=== PATIENT | female | born 1985 | race Hispanic/Latino ===

== ENCOUNTER 2017-04-28 05:49 | Emergency (ER) | payer MEDICAID, SELFPAY ==
[2017-04-28 06:12] LABS: #Basophils 0.1 thou/uL (0.0-0.2); #Eosinphils 0.1 thou/uL (0.0-0.7); #Monocytes 0.4 thou/uL (0.11-0.59); #Neutrophils 3.4 thou/uL (1.40-6.50); %Basophils 1.1 % (0.0-1.0); %Eosinophils 1.3 % (0.0-10.0); %Lymphocytes 34.2 % (21.0-51.0); %Monocytes 6.6 % (0.0-10.0); Hematocrit 41.1 % (36.0-47.0); Mean Platelet Volume 7.2 fL (7.4-10.4); Red Blood Cell (RBC) Count 4.92 mill/uL (4.20-5.40); White Blood Cell (WBC) Count 5.9 thou/uL (4.8-10.8)
[2017-04-28 06:31] LABS: ALT (SGPT) 37 U/L (8-55); AST (SGOT) 26 U/L (5-34); Alkaline Phosphatase 112 U/L (40-150); Anion Gap 10 mmol/L (10-20); BUN (Urea Nitrogen) 11 mg/dL (7.0-18.7); Bilirubin, Total 0.4 mg/dL (0.2-1.2); Calc. Creatinine Clearance 0 mL/min (70-130); Carbon Dioxide 25 mmol/L (22-29); Chloride 101 mmol/L (98-107); Estimated GFR-MDRD Greater than 90; Globulin 3.2 g/dL (2.4-3.5); Protein, Total 7.1 g/dL (6.0-8.3)
[2017-04-28 06:44] LABS: Bilirubin Negative (Negative); Blood, Urine Negative (Negative); Glucose, Urine (Dipstick) >=1000 mg/dL (Negative); Ketone, Urine 15 mg/dL (Negative); Nitrite Negative (Negative); Protein, Urine (Dipstick) Negative (Neg-Trace); Urobilinogen 0.2 mg/dL (0.2-1.0)
[2017-04-28 06:47] LABS: Bacteria/HPF Rare-Few HPF (None Seen); Hyaline Casts/LPF 4-6 HYALINE CAST LPF (0-3 Hyaline); RBC/HPF 0-3 HPF (0-3)
[2017-04-28] MEDS ORDERED: Ondansetron HCl/PF 4 MG/2 ML Vial ONE (08:16)
[2017-04-28] MEDS ORDERED: Morphine 4 MG/ML VIAL ONE (08:16)
--- NOTE | 2017-04-28 11:36 | ULT ---
PELVIC ULTRASOUND: Date: 04/28/17 HISTORY: Lower abdominal pain. COMPARISON: 12/19/14. TECHNIQUE: Transabdominal and endovaginal imaging of the pelvis is performed. Ovaries are interrogated with Gandara scale, color flow, and Doppler imaging with spectral waveform analysis. FINDINGS: Uterus is identified, without myometrial masses. Uterus measures 4.6 x 3.5 x 8.2 cm. Homogeneous endo metrium with a diameter of 0.4 cm. Right ovary is not appreciated due to previous right oophorectomy. Left ovary has a normal echotexture with follicles. Left ovary measures 1.8 x 1.8 x 3.6 cm. There is no free fluid. Ovarian Doppler: Vascular flow to left ovary. IMPRESSION: Unremarkable pelvic ultrasound. POS: [facility]
== END 2017-04-28 10:27 | disposition home or self-care (01) ==
LOC: ERS 05:49
DX: N76.0 Acute vaginitis (principal); R10.31 Right lower quadrant pain; R10.32 Left lower quadrant pain; E11.9 Type 2 diabetes mellitus without complications
CPT/HCPCS: 36415; 76856; 80053; 81003; 81015; 81025; 83690; 85025; 87086; 87480; 87491; 87510; 87591; 87660; 96361; 96374; 96375; J2270; J2405

== ENCOUNTER 2017-08-14 10:13 | Inpatient (IN) | payer MEDICAID, OTHER, SELFPAY ==
[2017-08-14] MEDS ORDERED: Gadobenate Dimeglumine 529 MG/1 ML (20ML VIAL) ONE (12:56)
[2017-08-14 16:47] LABS: #Basophils 0.1 thou/uL (0.0-0.2); #Eosinphils 0.1 thou/uL (0.0-0.7); #Lymphocytes 2.2 thou/uL (1.20-3.40); #Monocytes 0.4 thou/uL (0.11-0.59); %Basophils 1.2 % (0.0-1.0); %Eosinophils 1.3 % (0.0-10.0); %Lymphocytes 38.3 % (21.0-51.0); %Monocytes 6.8 % (0.0-10.0); %Neutrophils 52.4 % (42.0-75.0); Hemoglobin 12.6 g/dL (12.0-16.0); Mean Corpuscular HGB CONC 32.9 g/dL (32.0-36.0); Mean Corpuscular Hemoglobin 27.9 pg (27.0-31.0); Mean Corpuscular Volume 84.9 fl (81.0-99.0); Mean Platelet Volume 7.1 fL (7.4-10.4); Platelet Count 309 thou/uL (130-400); RBC Distribution Width 12.8 % (11.5-14.5); White Blood Cell (WBC) Count 5.6 thou/uL (4.8-10.8)
[2017-08-14 16:54] LABS: Hemoglobin A1c 8.9 % (4.0-6.0)
[2017-08-14 17:10] LABS: ALT (SGPT) 29 U/L (8-55); AST (SGOT) 25 U/L (5-34); Albumin 4.2 g/dL (3.5-5.0); Alkaline Phosphatase 68 U/L (40-150); Anion Gap 12 mmol/L (10-20); BUN (Urea Nitrogen) 14 mg/dL (7.0-18.7); Bilirubin, Total 0.3 mg/dL (0.2-1.2); Calc. Creatinine Clearance 0 mL/min (70-130); Calcium 9.3 mg/dL (7.8-10.44); Carbon Dioxide 24 mmol/L (22-29); Chloride 106 mmol/L (98-107); Estimated GFR-MDRD Greater than 90; Globulin 2.9 g/dL (2.4-3.5); Glucose 136 mg/dL (70-105); Potassium 3.4 mmol/L (3.5-5.1); Protein, Total 7.1 g/dL (6.0-8.3); Sodium 139 mmol/L (136-145)
--- NOTE | 2017-08-14 20:38 | MRI ---
MRI OF THE LUMBAR SPINE WITH AND WITHOUT CONTRAST 08/14/17 COMPARISON: None. HISTORY: Bilateral lower extremity numbness and tingling in her feet. Patient has worsening of symptoms and no w has difficulty ambulating. Patient is a brittle diabetic and is initially placed on Lyrica. Patient has poor control of her diabetes. TECHNIQUE: Multiplanar and multisequence MRI images were obtained of the lumbar spine without and with IV contra st. FINDINGS: There is a predominantly high T2 signal lesion in the posterior aspect of the central canal extending from T10 to L1-2. This is approximately 10.5 cm in length. Within this predominantly high T2 lesion, there are multiple septations which appear to demonstrate enhancement. There is a mass-like region m easuring 8 mm in greatest dimension at the T11-12 level which could represent a mass or a confluence of the septations in this location. This mass completely effaces the cord which is flattened and is a long the anterior aspect of the central canal. No marrow signal abnormality is present. There is mild disc desiccation of L5-S1. The other discs are well hydrated. No significant disc herniation is seen. No abnormal marrow signal is present. No prevertebral or paraspinal soft tissue abnormality is seen. IMPRESSION: There is a mass within the central canal compressing the spinal cord anteriorly and is likely a cause for the patient's symptoms. Differential diagnosis would include an arachnoid cyst that is complicat ed with multiple septations. This could also represent ventral herniation of the spinal cord through the dura. Lastly, this could represent a epidural/subdural abscess although this is felt to be less l ikely. However, this differential is a consideration given the patient's poorly controlled diabetes. This exam was reviewed with Dr. Isaac who agrees with the findings and impression. Dr. Sheets notifi ed of the findings at 7:58 p.m. on 08/14/17. Code CR POS: [facility]
[2017-08-14 21:12] LABS: Bilirubin Negative (Negative); Blood, Urine Negative (Negative); Clarity CLEAR (Clear); Glucose, Urine (Dipstick) Negative (Negative); Leukocyte Moderate (Negative); Nitrite Negative (Negative); Protein, Urine (Dipstick) Negative (Neg-Trace); Specific Gravity, Urine 1.022 (1.002-1.036); Urobilinogen 0.2 mg/dL (0.2-1.0)
[2017-08-14 21:16] LABS: Bacteria/HPF Rare-Few HPF (None Seen); Hyaline Casts/LPF 7-10 HYALINE CAST LPF (0-3 Hyaline); Pathc Cast-AUWi Flag 0.43 (0-2.49); RBC/HPF 0-3 HPF (0-3); Squamous Epithelial 0-3 HPF (0-3); WBC/HPF 21-50 HPF (0-3); Yeast-AUWi Flag 22.2 (0-25.0)
[2017-08-14] MEDS ORDERED: HYDROcodone/Acetaminophen 5/325 mg Tablet ONE (21:52)
[2017-08-14] MEDS ORDERED: Ondansetron ODT 4 MG TAB SL PRN (23:22)
[2017-08-14] MEDS ORDERED: Ondansetron HCl/PF 4 MG/2 ML Vial IVP PRN ×2 (23:22→23:27)
[2017-08-14] MEDS ORDERED: Acetaminophen 325 MG TAB PO PRN ×2 (23:22→23:27)
[2017-08-14] MEDS ORDERED: Calcium Carbonate 500 MG ChewTAB PO PRN (23:27)
[2017-08-14] MEDS ORDERED: Mag-Al 1200 mg/1200 mg/30 ML UDCUP PO PRN (23:27)
[2017-08-14] MEDS ORDERED: Fleet Enema 133 ML BOT PR PRN (23:27)
[2017-08-14 23:36] VITALS: BMI 33.2
[2017-08-14] MEDS: Sodium Chloride 0.9% 1,000 ML IV SCH (23:50)
--- NOTE | 2017-08-15 02:54 | HP ---
Ajith Bright PA-C, dictating for Sami Friedman MD This is a 50-minute initial patient evaluation in which greater than 50% of the exam was spent in cou nseling and coordinating the patient's care. Remainder of the exam was spent in review of patient's medical records and appropriate imaging studies. CHIEF COMPLAINT: Bilateral lower leg numbness and tingling with left leg weakness and pain. HISTORY OF PRESENT ILLNESS: Ms. Iniguez is a pleasant 32-year-old female who presents to [place] emergency room for the above complaints. Apparently, the patient has had a 3-week history of bilater al leg numbness and tingling in nondermatomal distribution with left leg pain in the left anterior th igh and posterior calf with progressive worsening of weakness in the left lower extremity. The patie nt states over the past 2 days, she has had increased falls and balance issues due to left leg weakne ss and has required to hold on to the wall for furniture when walking throughout her house and she macias s fallen several times, but has not used her cane or a walker, she does not have one. She is a type 2 diabetic. Her current A1c is 8.9 in the ER [facility]. She has been using Lyrica over the past 3 wee ks that she states has not helped improve her numbness and tingling. Again, she has also noticed bal ance difficulties due to her left leg weakness and pain. She has had issues of urinary retention whe re she has not had the urge to urinate and when she does finally go, her stream of urination is sever al minutes long. This has been going on for the past 2 or more week and she has also noticed some co nstipation over that time as well. She is not on any blood thinners. She has not had any recent tra vishal to [place]. She does not have a known history of IV drug use. Review of patient's lumbar spine M RI with and without contrast shows an enhancing lesion starting at the T10 level down to the L2 level that causing significant compression of the spinal cord and spinal canal. It is unclear if this is a cyst versus some type of tumor. The patient does have occasional headache into bilateral frontal r egion and some intermittent posterior neck pain, although she states her neck pain has not changed ov er the past 3 weeks and she did experience a headache on Saturday, which she states is somewhat new to her although she has a history of migraine headaches with . PHYSICAL EXAMINATION: On physical examination, the patient is awake, alert, and appropriate. Her GC S currently is 15. She has full strength in the bilateral upper extremities with some mild give way weakness in the right lower extremity with mild to moderate give way weakness throughout the entire l eft lower extremity. She has difficulty with dorsiflexion and plantar flexion bilaterally. She has intact sensation to light touch throughout though does state the left lower extremity feels as though she has hyperesthesia to touch. She has no worrisome myelopathic features on exam including no incr eased tone and Zapata's is negative bilaterally. IMPRESSION AND DIAGNOSES: 1. Low back with bilateral lower extremity numbness and tingling, left greater than right leg weakne ss. 2. Enhancing lesion noted on lumbar spine MRI from T10-L2. PLAN: I have discussed the patient's case and imaging with Dr. Friedman. At this time, I have ordered full cranial spinal imaging including MRI with and without contrast of the brain, cervical and thora cic spine. We will admit the patient to the surgical floor on bed rest with bathroom privileges. A Herrera will be placed. She may eat until midnight. We will consult Medicine regarding the patient's diabetes and possible urinary tract infection. We will follow up on her studies once they have been completed and determine the next appropriate course in treatment, but at this time the patient does n ot require emergent neurosurgical intervention. Again, we will follow up on her studies. Please aubree l with any questions or changes in patient's neurologic status.
[2017-08-15] MEDS: Morphine 4 MG/ML VIAL SLOW IVP PRN (03:16)
[2017-08-15] MEDS: HYDROcodone/Acetaminophen 5/325 mg Tablet PO PRN ×3 (05:49→18:34)
[2017-08-15 05:57] LABS: #Basophils 0.1 thou/uL (0.0-0.2); #Eosinphils 0.1 thou/uL (0.0-0.7); #Lymphocytes 2.7 thou/uL (1.20-3.40); #Monocytes 0.5 thou/uL (0.11-0.59); #Neutrophils 2.3 thou/uL (1.40-6.50); %Basophils 1.7 % (0.0-1.0); %Eosinophils 2.1 % (0.0-10.0); %Lymphocytes 47.3 % (21.0-51.0); %Monocytes 8.5 % (0.0-10.0); %Neutrophils 40.4 % (42.0-75.0); Hemoglobin 11.9 g/dL (12.0-16.0); Mean Corpuscular Hemoglobin 28.1 pg (27.0-31.0); Mean Corpuscular Volume 85.2 fl (81.0-99.0); Mean Platelet Volume 7.3 fL (7.4-10.4); Platelet Count 292 thou/uL (130-400); RBC Distribution Width 12.9 % (11.5-14.5); Red Blood Cell (RBC) Count 4.24 mill/uL (4.20-5.40); White Blood Cell (WBC) Count 5.7 thou/uL (4.8-10.8)
[2017-08-15 06:17] LABS: Anion Gap 11 mmol/L (10-20); BUN (Urea Nitrogen) 16 mg/dL (7.0-18.7); Calc. Creatinine Clearance 135 mL/min (70-130); Carbon Dioxide 25 mmol/L (22-29); Chloride 107 mmol/L (98-107); Estimated GFR-MDRD Greater than 90; Glucose 106 mg/dL (70-105); Potassium 3.7 mmol/L (3.5-5.1); Sodium 139 mmol/L (136-145)
[2017-08-15] MEDS ORDERED: Dextrose 5% in Water 1,000 ML IV PRN (07:51)
[2017-08-15] MEDS ORDERED: Loratadine 10 MG TAB PO PRN (07:51)
[2017-08-15] MEDS ORDERED: Artificial Tears 18 DROP/0.9 ML EA EYE PRN (07:51)
[2017-08-15] MEDS ORDERED: Eucerin (Mineral Oil/Petrolatum,White) 30 gm Jar TOP PRN (07:51)
[2017-08-15] MEDS ORDERED: Ondansetron ODT 4 MG TAB PO PRN (07:51)
[2017-08-15] MEDS ORDERED: Loperamide HCl 2 MG CAP PO PRN (07:51)
[2017-08-15] MEDS ORDERED: Diabetic Tussin 200 MG/10 ML UDCUP PO PRN (07:51)
[2017-08-15] MEDS ORDERED: Dextrose 50% Abboject 50 ML SYRINGE SLOW IVP PRN (07:51)
[2017-08-15] MEDS ORDERED: Zolpidem Tartrate 5 MG TAB PO PRN (07:51)
[2017-08-15] MEDS ORDERED: hydrALAZINE 20 MG/ML VIAL SLOW IVP PRN (07:51)
[2017-08-15] MEDS ORDERED: Sodium Chloride 0.65% Nasal 44 ML BOT EA NARE PRN (07:51)
[2017-08-15] MEDS ORDERED: Chloraseptic Spray 180 ml Bottle PO PRN (07:51)
[2017-08-15] MEDS: metFORMIN 500 MG TAB PO SCH ×2 (08:26→16:54)
[2017-08-15] MEDS: Docusate 100 MG CAP PO SCH ×2 (08:26→20:32)
--- NOTE | 2017-08-15 10:27 | PDOC.PN ---
- Subjective Encounter Start Date: 08/15/17 Encounter Start Time: 08:10 -: old records requested/rev consult for medical management - Objective Resuscitation Status: Resuscitation Status FULL:Full Resuscitation MAR Reviewed: Yes Vital Signs & Weight: Vital Signs (12 hours) Temp Pulse Resp BP Pulse Ox 08/15/17 07:25 98.3 F 65 16 105/74 97 08/15/17 03:30 98.1 F 66 16 119/76 96 08/14/17 23:10 98.2 F 57 L 18 132/79 99 Weight Weight 153 lb 9 oz I&O: 08/14/17 08/15/17 08/16/17 06:59 06:59 06:59 Intake Total 450 Output Total 250 Balance 200 Result Diagrams: 08/15/17 04:53 08/15/17 04:53 Additional Labs: Accuchecks 08/15/17 05:44 POC Glucose 109 Radiology Reviewed by me: Yes (MRI) Phys Exam - Physical Examination Constitutional: NAD HEENT: PERRLA, moist MMs, sclera anicteric Neck: no JVD, supple Respiratory: no wheezing, no rales, no rhonchi Cardiovascular: RRR, no significant murmur, no rub Gastrointestinal: soft, non-tender, no distention, positive bowel sounds Musculoskeletal: no edema, pulses present parasthesia and weakness of both lower extrimity, more on left side Lymphatic: no nodes Psychiatric: normal affect, A&O x 3 Skin: no rash, normal turgor Dx/Plan (1) Paraplegia, unspecified Code(s): G82.20 - PARAPLEGIA, UNSPECIFIED Status: Acute (2) Bilateral leg paresthesia Code(s): R20.2 - PARESTHESIA OF SKIN Status: Acute (3) Mass of spinal cord Code(s): G95.9 - DISEASE OF SPINAL CORD, UNSPECIFIED Status: Acute (4) Diabetes type 2, controlled Code(s): E11.9 - TYPE 2 DIABETES MELLITUS WITHOUT COMPLICATIONS Status: Chronic (5) Obesity (BMI 30.0-34.9) Code(s): E66.9 - OBESITY, UNSPECIFIED Status: Chronic (6) UTI (urinary tract infection) Status: Suspected (7) Hypokalemia Code(s): E87.6 - HYPOKALEMIA Status: Resolved - Plan cont current plan of care, PT/OT * send urine culture and start antibiotics if afebrile or positive culture * pt is planned for surgery for spinal cord tumur * start hyperglycemia protocol treatment * medication reviewed as below * symptomatic treatment * code status- full code * home medication reconciled. History of Present Illnes - History of Present Illness Reason for Visit: admitted for paraplegia History of Present Illness: has parasthesia and weakness of both lower limb more on left side has urgency of urine, required buenrostro no fever no trauma - Past Medical History Musculoskeletal: Chronic low back pain Endocrine: Diabetes - Past Surgical History Past Surgical History: Other (ovarian cyst removal), Tubal Ligation - Past Family History Family History: None - Past Social History Smoke: No Alcohol: None Drugs: None Lives: With Family Domestic Violence: Negative Review of Systems - Review of Systems Constitutional: negative: fever, chills, sweats, weakness, malaise, other Eyes: negative: Pain, Vision Change, Conjunctivae Inflammation, Eyelid Inflammation, Redness, Other ENT: negative: Ear Pain, Ear Discharge, Nose Pain, Nose Discharge, Nose Congestion, Mouth Pain, Mouth Swelling, Throat Pain, Throat Swelling, Other Respiratory: negative: Cough, Dry, Shortness of Breath, Hemoptysis, SOB with Excertion, Pleuritic Pain, Sputum, Wheezing Cardiovascular: negative: chest pain, palpitations, orthopnea, paroxysmal nocturnal dyspnea, edema, light headedness, other Gastrointestinal: negative: Nausea, Vomiting, Abdominal Pain, Diarrhea, Constipation, Melena, Hematochezia, Other Genitourinary: Frequency. negative: Dysuria, Incontinence, Hematuria, Retention , Other Musculoskeletal: negative: Neck Pain, Shoulder Pain, Arm Pain, Back Pain, Hand Pain, Leg Pain, Foot Pain, Other Skin: negative: Rash, Lesions, Chandler, Bruising, Other Neurological: Weakness, Numbness. negative: Incoordination, Change in Speech, Confusion, Seizures, Other - Medications/Allergies Allergies/Adverse Reactions: Allergies Allergy/AdvReac Type Severity Reaction Status Date / Time No Known Drug Allergies Allergy Verified 08/14/17 23:21 Medications: Current Medications Acetaminophen (Tylenol) 650 mg PO Q4H PRN PRN Reason: Headache/Fever or Pain Hydrocodone Bitart/Acetaminophen ([place] 5/325) 1 tab PO Q4H PRN PRN Reason: Moderate Pain (4-6) Last Admin: 03/29/18 05:49 Dose: 1 tab Al Hydroxide/Mg Hydroxide (Maalox) 30 ml PO Q6H PRN PRN Reason: Heartburn or Indigestion Artificial Tears (Tears Naturale) 0 drop EA EYE PRN PRN PRN Reason: Dry Eyes Calcium Carbonate (Tums) 1,000 mg PO Q4H PRN PRN Reason: Heartburn or Indigestion Dextrose/Water (Dextrose 50%) 25 gm SLOW IVP PRN PRN PRN Reason: Hypoglycemia Docusate Sodium (Colace) 100 mg PO BID [facility] Last Admin: 08/15/17 08:26 Dose: 100 mg Glucagon (Glucagon) 1 mg IM PRN PRN PRN Reason: Hypoglycemia Guaifenesin (Robitussin Sf) 200 mg PO Q4H PRN PRN Reason: Cough Hydralazine HCl (Apresoline) 10 mg SLOW IVP Q4H PRN PRN Reason: Systolic BP > 180 Sodium Chloride (Normal Saline 0.9%) 1,000 mls @ 75 mls/hr IV .[id number] [facility] Last Admin: 08/14/17 23:50 Dose: 1,000 mls Dextrose/Water (D5w) 1,000 mls @ 0 mls/hr IV .Q0M PRN; As Directed PRN Reason: Hypoglycemia Insulin Human Lispro (Humalog) 0 units SC .MODERATE SLIDING SC PRN PRN Reason: Moderate Correctional Scale Insulin Human Lispro (Humalog) 0 units SC .BEDTIME SLIDING SC PRN PRN Reason: Bedtime Correctional Scale Loperamide HCl (Imodium) 2 mg PO PRN PRN PRN Reason: Diarrhea/Loose Stools Loratadine (Claritin) 10 mg PO DAILYPRN PRN PRN Reason: Sinus Symptoms [facility]) [facility] Last Admin: 08/15/17 08:26 Dose: 500 mg Mineral Oil/White Petrolatum (Eucerin Cream) 0 gm TOP BIDPRN PRN PRN Reason: Dry Skin Morphine Sulfate (Morphine) 2 mg SLOW IVP Q4H PRN PRN Reason: Severe Pain (7-10) Last Admin: 08/15/17 03:16 Dose: 2 mg Ondansetron HCl (Zofran Odt) 4 mg PO Q6H PRN PRN Reason: Nausea/Vomiting Ondansetron HCl (Zofran) 4 mg IVP Q6H PRN PRN Reason: Nausea/Vomiting Phenol (Chloraseptic [place] 180 Ml Bot) 0 ml PO PRN PRN PRN Reason: Sore Throat Sodium Biphosphate/Sodium Phosphate (Fleet Enema) 133 ml [place] ONE PRN PRN Reason: Constipation Stop: 09/13/17 23:28 Sodium Chloride ([place] Nasal [place] 0.65%) 0 ml EA NARE QIDPRN PRN PRN Reason: Nasal Congestion Zolpidem Tartrate (Ambien) 5 mg PO HSPRN PRN PRN Reason: Insomnia
--- NOTE | 2017-08-15 12:16 | MRI ---
BRAIN MRI WITH AND WITHOUT CONTRAST: Date: 08/15/17 CLINICAL HISTORY: Spinal canal lesion. FINDINGS: The ventricular system is normal in size. Midline structures maintain appropriate alignment. There is no restricted diffusion or ventriculomegaly. No intracranial hemorrhagic susceptibility. There is no pathologic intra-axial enhancing mass. Imaged skull base flow-voids are patent. No significant abnor malities of the brain parenchyma are seen. IMPRESSION: Normal pre and postcontrast brain MRI. POS: [facility]
--- NOTE | 2017-08-15 12:26 | MRI ---
MRI CERVICAL SPINE WITH AND WITHOUT CONTRAST: HISTORY: Spinal canal lesion. FINDINGS: The cervical spinal cord maintains appropriate caliber, contour, and signal intensity. There is no p athologic intramedullary enhancement of the cervical spinal cord. The imaged posterior cranial fossa contents are maintained. There is no significant abnormality of the cervical spine vertebrae. Disk space heights are preserved. Minimal disk bulges are present without significant cord deformity. IMPRESSION: No pathologic intramedullary enhancing lesion of the cervical spinal cord. POS: [facility]
--- NOTE | 2017-08-15 12:47 | MRI ---
THORACIC SPINAL MRI WITH AND WITHOUT CONTRAST: CLINICAL HISTORY: Spinal canal lesion. CORRELATION: Reference is made to a preceding MRI of the lumbar spine from the previous date. FINDINGS: There is pathologic enhancement of the vertebral canal, predominantly cystic in morphology, with enha ncing internal nodularity at its cephalad and posterior aspect, as well as relatively thick internal enhancing septae. The abnormality extends into the lumbar vertebral canal, below the field of view. The finding does represent the appearance of an extramedullary intradural lesion with prominent cord compression and anterior displacement of the compressed distal spinal cord. Incidental note of patchy opacities at each posterior lung zone. No acute marrow edema. No compression deformity or significant malalignment of the thoracic spine. No obvious paraspinous soft tissue abnormality. IMPRESSION: Partially imaged cystic and solid enhancing mass of the vertebral canal, favoring an intradural, extr amedullary location. There is marked compression and anterior displacement of the distal spinal cord as a result. Primary considerations include a cystic neoplasm, particularly a cystic variant of mariela rogenic tumor. Other forms for cystic neoplasm are not excluded. Alternatively, an arachnoid cyst, or infectious/inflammatory cyst with internal complexity are considerations. The finding does result in prominent cord compromise as well as anterior displacement of the cord within the vertebral canal producing a severe degree of cord compression, and therefore surgical removal should be clinically c onsidered. POS: [facility]
[2017-08-15] MEDS: Sodium Chloride 0.9% 1,000 ML IV SCH ×2 (19:09→20:32)
[2017-08-15] MEDS: Ondansetron HCl/PF 4 MG/2 ML Vial IVP PRN (23:30)
[2017-08-16] MEDS ORDERED: Famotidine/PF 20 mg/2ml Vial ONE (06:40)
[2017-08-16] MEDS ORDERED: Ondansetron HCl/PF 4 MG/2 ML Vial ONE ×3 (06:40→14:32)
[2017-08-16] MEDS ORDERED: Thrombin 5000 UNITS/5 ML VIAL ONE ×2 (07:05→14:32)
[2017-08-16] MEDS ORDERED: Sodium Chloride 0.9% 10 ML ONE (07:05)
[2017-08-16] MEDS ORDERED: Bacitracin Zinc Ointment 30 gm TUBE ONE (07:05)
[2017-08-16] MEDS ORDERED: Phenylephrine HCL 10 MG/ML VIAL ONE (07:17)
[2017-08-16] MEDS ORDERED: Albumin 5% 0 ML ONE (07:17)
[2017-08-16] MEDS ORDERED: Midazolam HCl 2 mg/2 ml Vial ONE (07:34)
[2017-08-16] MEDS ORDERED: Metoclopramide HCl 10 MG/2 ML VIAL ONE ×2 (07:35→14:32)
[2017-08-16] MEDS ORDERED: Fentanyl 250 MCG/5 ML VIAL ONE (07:37)
[2017-08-16] MEDS ORDERED: Promethazine HCl 25 MG/ML VIAL ONE (07:38)
[2017-08-16] MEDS ORDERED: CEFAZOLIN/Water 2 GM/20 ML SYRINGE ONE (07:40)
--- NOTE | 2017-08-16 09:53 | PRG ---
DATE OF SERVICE: 08/15/2017 This is a 50-minute initial hospital visit note in which 50 minutes were spent in review of the imagi ng record, evaluation and examination of patient, and formulation of a plan. Greater than 50% of the time was spent in counseling. CHIEF COMPLAINT: Progressive paraplegia over the last 2 weeks, worsening over this week with spinal canal mass. HISTORY OF PRESENT ILLNESS: I reviewed the notes of my colleague, Ajith Bright PA-C, and agree wi th its content. Mr. Iniguez is a 32-year-old mother of 3 over the last couple of weeks she started t o have paresthesias in her legs, progressive motor weakness or motor deficit to where she is essentia lly unable to walk at this time over the last few days. Review of her MRI of the thoracolumbar spine demonstrates a rim enhancing lesion that is cystic compr essing the spinal cord. 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 There is no signal abnormality in the cord indicating edema and the cord is essentially flattened by the dorsa l cyst. I should note that there is some enhancement that is more now nodular in the center. The on set has been rapid. On exam, she is alert, appropriate. She is moderately weak throughout multiple myotomes in the right lower extremity and completely plegic in the left lower extremity. She has a T10 sensory level. Rochelle bran has had problems with bowel and bladder. IMPRESSION AND PLAN: I have recommended surgery in a more urgent fashion. This will be a T10-L2 hess inectomy and expansion beyond that, should it be necessary with exploration and resection. Informed consent was discussed in detail. The patient understands the main risk is temporary and permanent ne urological deficit and the need for further surgery and also wound healing issues such as infection, CSF leak and dehiscence. They will plan to proceed with surgery tomorrow, pursue full cranial spinal imaging thoracolumbar tumor spinal cord compression.
[2017-08-16] MEDS ORDERED: Fentanyl 100 MCG/2 ML VIAL ONE ×4 (10:37→17:24)
[2017-08-16] MEDS: Docusate 100 MG CAP PO SCH ×2 (11:59→21:47)
[2017-08-16] MEDS: metFORMIN 500 MG TAB PO SCH ×3 (11:59→18:31)
--- NOTE | 2017-08-16 12:23 | PDOC.PN ---
- Subjective Encounter Start Date: 08/16/17 Encounter Start Time: 06:45 Patient seen and examined. No new complaints. No overnight events - Objective Resuscitation Status: Resuscitation Status FULL:Full Resuscitation MAR Reviewed: Yes Vital Signs & Weight: Vital Signs (12 hours) Temp Pulse Resp BP Pulse Ox 08/16/17 04:38 98.2 F 74 16 118/77 94 L Weight Weight 153 lb 9 oz I&O: 08/15/17 08/16/17 08/17/17 06:59 06:59 06:59 Intake Total 450 1700 Output Total 250 2150 Balance 200 -450 Result Diagrams: 08/15/17 04:53 08/15/17 04:53 Additional Labs: Accuchecks 08/16/17 08/15/17 08/15/17 05:23 19:41 16:00 POC Glucose 162 H 128 H 171 H Radiology Reviewed by me: Yes (MRI cervical spine and thorecic spine) Phys Exam - Physical Examination Constitutional: NAD HEENT: PERRLA, moist MMs, sclera anicteric Neck: no JVD, supple Respiratory: no wheezing, no rales, no rhonchi Cardiovascular: RRR, no significant murmur, no rub Gastrointestinal: soft, non-tender, no distention, positive bowel sounds Musculoskeletal: no edema, pulses present paraplegia, weakness more on left side Lymphatic: no nodes Psychiatric: normal affect, A&O x 3 Skin: no rash, normal turgor Dx/Plan (1) Paraplegia, unspecified Code(s): G82.20 - PARAPLEGIA, UNSPECIFIED Status: Acute (2) Bilateral leg paresthesia Code(s): R20.2 - PARESTHESIA OF SKIN Status: Acute (3) Mass of spinal cord Code(s): G95.9 - DISEASE OF SPINAL CORD, UNSPECIFIED Status: Acute (4) Diabetes type 2, controlled Code(s): E11.9 - TYPE 2 DIABETES MELLITUS WITHOUT COMPLICATIONS Status: Chronic (5) Obesity (BMI 30.0-34.9) Code(s): E66.9 - OBESITY, UNSPECIFIED Status: Chronic (6) UTI (urinary tract infection) Status: Suspected (7) Hypokalemia Code(s): E87.6 - HYPOKALEMIA Status: Resolved - Plan cont current plan of care * blood sugar are controlled * so far urine cultunre negative * medication reviewed as below * symptomatic treatment * today plan for surgery by neurosurgeon team. Review of Systems - Review of Systems Constitutional: negative: fever, chills, sweats, weakness, malaise, other Eyes: negative: Pain, Vision Change, Conjunctivae Inflammation, Eyelid Inflammation, Redness, Other Respiratory: negative: Cough, Dry, Shortness of Breath, Hemoptysis, SOB with Excertion, Pleuritic Pain, Sputum, Wheezing Cardiovascular: negative: chest pain, palpitations, orthopnea, paroxysmal nocturnal dyspnea, edema, light headedness, other Gastrointestinal: negative: Nausea, Vomiting, Abdominal Pain, Diarrhea, Constipation, Melena, Hematochezia, Other Genitourinary: negative: Dysuria, Frequency, Incontinence, Hematuria, Retention , Other Musculoskeletal: Back Pain. negative: Neck Pain, Shoulder Pain, Arm Pain, Hand Pain, Leg Pain, Foot Pain, Other Skin: negative: Rash, Lesions, Chandler, Bruising, Other Neurological: Weakness, Numbness - Medications/Allergies Allergies/Adverse Reactions: Allergies Allergy/AdvReac Type Severity Reaction Status Date / Time No Known Drug Allergies Allergy Verified 08/14/17 23:21 Medications: Current Medications Acetaminophen (Tylenol) 650 mg PO Q4H PRN PRN Reason: Headache/Fever or Pain Hydrocodone Bitart/Acetaminophen ([place] 5/325) 1 tab PO Q4H PRN PRN Reason: Moderate Pain (4-6) Last Admin: 08/15/17 18:34 Dose: 1 tab Al Hydroxide/Mg Hydroxide (Maalox) 30 ml PO Q6H PRN PRN Reason: Heartburn or Indigestion Artificial Tears (Tears Naturale) 0 drop EA EYE PRN PRN PRN Reason: Dry Eyes Calcium Carbonate (Tums) 1,000 mg PO Q4H PRN PRN Reason: Heartburn or Indigestion Dextrose/Water (Dextrose 50%) 25 gm SLOW IVP PRN PRN PRN Reason: Hypoglycemia Docusate Sodium (Colace) 100 mg PO BID [facility] Last Admin: 08/16/17 11:59 Dose: Not Given Glucagon (Glucagon) 1 mg IM PRN PRN PRN Reason: Hypoglycemia Guaifenesin (Robitussin Sf) 200 mg PO Q4H PRN PRN Reason: Cough Hydralazine HCl (Apresoline) 10 mg SLOW IVP Q4H PRN PRN Reason: Systolic BP > 180 Sodium Chloride (Normal Saline 0.9%) 1,000 mls @ 75 mls/hr IV .[id number] [facility] Last Admin: 08/15/17 20:32 Dose: 1,000 mls Dextrose/Water (D5w) 1,000 mls @ 0 mls/hr IV .Q0M PRN; As Directed PRN Reason: Hypoglycemia Insulin Human Lispro (Humalog) 0 units SC .MODERATE SLIDING SC PRN PRN Reason: Moderate Correctional Scale Insulin Human Lispro (Humalog) 0 units SC .BEDTIME SLIDING SC PRN PRN Reason: Bedtime Correctional Scale Loperamide HCl (Imodium) 2 mg PO PRN PRN PRN Reason: Diarrhea/Loose Stools Loratadine (Claritin) 10 mg PO DAILYPRN PRN PRN Reason: Sinus Symptoms Metformin HCl (Glucophage) 500 mg PO BID-[facility] Last Admin: 08/16/17 11:59 Dose: Not Given Mineral Oil/White Petrolatum (Eucerin Cream) 0 gm TOP BIDPRN PRN PRN Reason: Dry Skin Morphine Sulfate (Morphine) 2 mg SLOW IVP Q4H PRN PRN Reason: Severe Pain (7-10) Last Admin: 08/15/17 03:16 Dose: 2 mg Ondansetron HCl (Zofran Odt) 4 mg PO Q6H PRN PRN Reason: Nausea/Vomiting Ondansetron HCl (Zofran) 4 mg IVP Q6H PRN PRN Reason: Nausea/Vomiting Last Admin: 08/15/17 23:30 Dose: 4 mg Phenol (Chloraseptic [place] 180 Ml Bot) 0 ml PO PRN PRN PRN Reason: Sore Throat Sodium Biphosphate/Sodium Phosphate (Fleet Enema) 133 ml [place] ONE PRN PRN Reason: Constipation Stop: 09/13/17 23:28 Sodium Chloride ([place] Nasal [place] 0.65%) 0 ml EA NARE QIDPRN PRN PRN Reason: Nasal Congestion Zolpidem Tartrate (Ambien) 5 mg PO HSPRN PRN PRN Reason: Insomnia
[2017-08-16] MEDS ORDERED: HYDROmorphone 2 MG/ML VIAL SLOW IVP PRN (12:53)
[2017-08-16] MEDS ORDERED: Promethazine HCl 25 MG/ML VIAL SLOW IVP PRN (12:53)
[2017-08-16] MEDS ORDERED: Ondansetron HCl/PF 4 MG/2 ML Vial IVP PRN (12:53)
[2017-08-16] MEDS ORDERED: Promethazine HCl 25 MG/ML VIAL IM PRN (12:53)
[2017-08-16] MEDS ORDERED: Meperidine HCl/PF 25 MG/ML VIAL SLOW IVP PRN (12:53)
[2017-08-16] MEDS ORDERED: Morphine Sulfate 2 MG/ML SYRINGE SLOW IVP PRN (12:53)
[2017-08-16] MEDS ORDERED: HYDROmorphone 0.5 MG/0.5 ML SYRINGE ONE ×2 (13:42→13:59)
[2017-08-16] MEDS ORDERED: Lidocaine 1% PF 5 ML VIAL ONE (14:32)
[2017-08-16] MEDS ORDERED: Glycopyrrolate 0.2 MG/ML 5 ML SYRINGE ONE (14:32)
[2017-08-16] MEDS ORDERED: Dexamethasone 20 MG/5 ML VIAL ONE (14:32)
[2017-08-16] MEDS ORDERED: PHENYLEPHRINE-NS 100 MCG/ML 10 ML SYRINGE ONE (14:32)
[2017-08-16] MEDS ORDERED: Propofol 200 MG/20 ML VIAL ONE (14:32)
[2017-08-16] MEDS: Sodium Chloride 0.9% 1,000 ML IV SCH (16:34)
--- NOTE | 2017-08-16 16:58 | OP ---
OR: 11. WOUND TYPE: Type 1 wound. SURGEON: Sami Friedman M.D. AIR OPERATIONS MANAGER: Ajith Bright PA-C. 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 PROCEDURES: 1. T10-L2 laminectomy for intradural extramedullary tumor resection involving the thoracic and the l umbar segments of T10, T11, T12, L1, and L2. 2. Use of operative microscope for microdissection. DESCRIPTION OF PROCEDURE: After informed consent was obtained from the patient, the patient was brou ght to OR 11. Proper patient pause and identification was carried out. She was placed under excelle nt general endotracheal anesthesia and positioned prone on the operating room table and all appropria te points were padded. We identified the bottom of T9-T10, T11, T12, L1 and L2 segments. A linear m ark was made over this region. This area sterilely cleansed, prepared, and draped. Proper patient p ause and identification was carried out. The wound was then opened with a combination of sharp, mono polar and blunt dissection, and the bottom of T9-L2 segments were all exposed. Localization film con firmed our area of interest. We then performed a bottom of T9 essentially T10-T11, T12, L1 and L2 la minectomies, partial facetectomies and foraminotomies. I was careful to preserve beyond mesial facet s to avoid postoperative laminectomy deformity given the patient's young age; however, I was cognizan t of the fact that there were portions of the tumor that appeared to extend in the foramen and I woul d have been prepared to extend the decompression laterally at the appropriate segments in order to ma ximize a safe resection. Following laminectomy, the microscope was brought into the field for microd issection. I then opened the dura in the midline from essentially the top of the T10 segment to the L2 segment. This revealed a large cystic purple and flesh colored mass all dorsal to the cord and ca uda equina. Starting the caudal segment, I began to gently remove it off of the cauda equina. There were portions where it was adherent to the nerve roots, but I was able to dissect this free. It kevin eared to be certainly adherent to what appeared to be left T12 nerve root and appeared to even not on ly be adherent but arise from this nerve root. As such, I was careful to identify the nerve root exq uisitely and avoid any vascular structures, and I cauterized this nerve root and sacrificed in order to fully resect the tumor. I then pulled it continuing in a cephalad fashion and continued to free i t from the underlying cord, which was at times adherent to the cyst, although I proceeded cephalad an d also laterally into the foramen and was able to resect the tumor completely. I should note I did h ave to decompress the cyst in order to safely resected and pull it and to obtain a gross total resect ion. Although I was careful to avoid dissemination of cystic fluid by protecting both cephalad and c audal with patties in the intradural space. The final portion of the tumor cephalad where the left T 12 nerve root was arising from a portion of the cord. This was unable to be saved. Obviously, given its direct continuation and the fact that it arose from that root, this was then sacrificed as an ac cident to spinal cord. Again, I protected the vasculature of the cord, in particularly artery of [place] that appeared to be entering on the right side of the spinal cord at approximately T11. At the conclusion of the tumor resection, copious gentle irrigation occurred. The dura was then closed with a running locking suture with a watertight closure. DuraSeal was placed over the dura and there was no evidence of CSF leak. Vancomycin powder was also placed. The preliminary pathology was cons istent with benign schwannoma. I felt as if I obtained a gross total resection and the wound was copy writer iously irrigated as was maximizing hemostasis and closed the wound in anatomic layers. The patient ania alves emerged from anesthesia.
[2017-08-16] MEDS: CEFAZOLIN 1 GM, Syringe 2.5 ML in Sterile Water 7.5 ML SLOW IVP SCH ×2 (18:11→18:31)
[2017-08-16] MEDS: Dexamethasone 4 mg/ml Vial SLOW IVP SCH (18:29)
[2017-08-16] MEDS: Morphine 4 MG/ML VIAL SLOW IVP PRN ×2 (18:29→20:00)
[2017-08-16] MEDS: HumaLOG 300 UNITS/3 ML VIAL SC PRN (18:37)
[2017-08-16] MEDS: HYDROcodone/Acetaminophen 5/325 mg Tablet PO PRN (21:44)
[2017-08-16] MEDS ORDERED: CEFAZOLIN 1 GM in Sodium Chloride 0.9% 100 ML IVPB SCH (22:00)
[2017-08-17] MEDS: HumaLOG 300 UNITS/3 ML VIAL SC PRN ×3 (00:14→18:33)
[2017-08-17] MEDS: Famotidine/PF 20 mg/2ml Vial SLOW IVP SCH ×2 (00:32→10:25)
[2017-08-17] MEDS: Dexamethasone 4 mg/ml Vial SLOW IVP SCH ×5 (00:36→23:12)
[2017-08-17] MEDS: Ondansetron HCl/PF 4 MG/2 ML Vial IVP PRN (00:51)
[2017-08-17] MEDS: HYDROcodone/Acetaminophen 5/325 mg Tablet PO PRN ×5 (03:00→21:40)
[2017-08-17] MEDS: Morphine 4 MG/ML VIAL SLOW IVP PRN ×4 (03:01→19:10)
[2017-08-17] MEDS: Docusate 100 MG CAP PO SCH (07:45)
[2017-08-17] MEDS: metFORMIN 500 MG TAB PO SCH ×2 (07:45→16:22)
--- NOTE | 2017-08-17 08:59 | PRG ---
DATE OF SERVICE: 08/17/2017 SUBJECTIVE: Ms. Iniguez is now postoperative day #1, having undergone T9-L2 laminectomies for spinal cord tumor resection. Initial pathology consistent with schwannoma. I have discussed this with the patient. She states she is doing well today. She complains of suboccipital headaches and incisiona l back pain. She states the bilateral lower extremity pain and weakness she experienced postoperativ debbie has significantly improved. Sensation especially into the left lower extremity has also greatly improved. She is able to move both legs antigravity, can even resist strength testing in the bilater al plantar flexion and dorsiflexion, which is a significant improvement compared to her preoperative exam. At this time, we will attempt to mobilize the patient. She will remain at 15 degrees for 1 ho ur, 30 degrees for an hour and then activity as tolerated, she does not have any headache. More than likely, we will transfer her to the surgical floor later today. Certainly it is good that the patie nt's tumor preliminary pathology is consistent with schwannoma and again we will continue to follow t he patient, but she is doing remarkably well.
[2017-08-17] MEDS: Sodium Chloride 0.9% 1,000 ML IV SCH (09:23)
--- NOTE | 2017-08-17 11:47 | CON ---
DATE OF CONSULTATION: 08/17/2017 SERVICE: Pulmonary Medicine REASON FOR CONSULTATION: ICU patient. HISTORY OF PRESENT ILLNESS: The patient is a 32-year-old female with past medical history significant for spinal cord lesion. She was in her usual state of health when she started having increasing clumsiness in lower extremities, urinary retention, constipation. Ultimately, she was discovered to have a spinal cord lesion. She is postop day #1 from laminectomy and excision of this lesion. She denies any current fevers, chills, nausea, vomiting or chest discomfort. She does have appropriate back pain. That being said, she has improving strength in her bilateral lower extremities. PAST MEDICAL HISTORY: 1. Type 2 diabetes mellitus. 2. Spinal cord mass. PAST SURGICAL HISTORY: 1. Right ovarian cyst removed. 2. Laminectomy and excision of a spinal lesion. SOCIAL HISTORY: Negative for alcohol, tobacco or illicit drug use. She has no known exposure to chemicals, dust asbestos or tuberculosis. FAMILY HISTORY: Noncontributory. ALLERGIES: No known drug allergies. MEDICATIONS LIST: A list of her inpatient medications were reviewed. I have restarted her Lyrica b.i.d. REVIEW OF SYSTEMS: General, head, ears, eyes, nose, throat, cardiovascular, respiratory, GI, , musculoskeletal, neurologic and skin is negative except as mentioned in the HPI. PHYSICAL EXAMINATION: VITAL SIGNS: Afebrile, pulse 75, blood pressure 107/77, respirations 24, saturation 95% on 2 liters nasal cannula. GENERAL: The patient is awake and alert, in no apparent distress. LUNGS: Excellent air entry. There is no prolonged expiratory phase, wheezing, rhonchi or crackles. HEART: Normal rate, regular. ABDOMEN: Soft, nontender, nondistended. Bowel sounds are positive. MUSCULOSKELETAL: No cyanosis or clubbing. There is no pitting in the bilateral lower extremities. NEUROLOGIC: Grossly nonfocal. GENITOURINARY: Herrera catheter in place. LABORATORY DATA: WBC 5.7, hemoglobin 11.9, platelets 292,000. Glucose is ranging from 128-200. Urinalysis is positive for leukocyte esterase and 21-50 white blood cells, but otherwise unremarkable. Urine culture is negative at 48 hours. IMAGIN. Thoracic spine MRI demonstrates partially imaged cystic and solid enhancing mass of the vertebral canal favoring an intradural extramedullary location with marked compression and displacement of the spinal cord. 2. MRI of the brain is unremarkable. 3. MRI of the cervical spine is unremarkable. ASSESSMENT: 1. Type 2 diabetes mellitus. 2. Laminectomy and excision of extramedullary tumor involving thoracic and lumbar segments, postop day #1. 3. Parapalegia. PLAN: The patient will remain in the ICU, so we can watch her neurologic status very closely. She has improving strength already in the lower extremities. I will restart Lyrica. Pulmonary Critical Care will continue to follow while she remains in this location. 70 minutes have been devoted to this patient in various activities. I personally reviewed all imaging studies and laboratory data noted within this document. For fifty percent of this time, I was interacting with the patient at the bedside or coordinating care with the care team. For the remainder of the time I was immediately available to the patient in the hospital unit. HEAVEN
[2017-08-17] MEDS: CEFAZOLIN 1 GM, Syringe 2.5 ML in Sterile Water 7.5 ML SLOW IVP SCH (14:28)
[2017-08-17] MEDS: tiZANidine HCl 4 MG TAB PO PRN ×2 (16:22→22:28)
--- NOTE | 2017-08-17 18:10 | PDOC.PN ---
- Subjective Encounter Start Date: 08/17/17 Encounter Start Time: 12:00 Patient seen and examined. No new complaints. No overnight events. Pain and B/L LE strength improving - Objective Resuscitation Status: Resuscitation Status FULL:Full Resuscitation MAR Reviewed: Yes Vital Signs & Weight: Vital Signs (12 hours) Temp Pulse Resp BP Pulse Ox 08/17/17 15:26 98.6 F 76 16 117/75 92 L 08/17/17 14:45 98.6 F 76 18 118/79 93 L 08/17/17 11:57 98.4 F 08/17/17 11:54 94 L 08/17/17 08:08 96 08/17/17 07:25 98.1 F 74 16 97 08/17/17 07:00 98.1 F Weight Weight 153 lb 9 oz Most Recent Monitor Data Heart Rate from ECG 93 NIBP 122/75 NIBP BP-Mean 86 Respiration from ECG 17 SpO2 94 I&O: 08/16/17 08/17/17 08/18/17 06:59 06:59 06:59 Intake Total 1700 1266 1098 Output Total 2150 1860 1040 Balance -450 -594 58 Result Diagrams: 08/15/17 04:53 08/15/17 04:53 Additional Labs: Accuchecks 08/17/17 08/17/17 08/17/17 17:46 11:40 04:35 POC Glucose 261 H 146 H 181 H 08/17/17 08/16/17 00:13 18:37 POC Glucose 151 H 189 H EKG Reviewed by me: Yes (Tele SR) Phys Exam - Physical Examination Constitutional: NAD Respiratory: no wheezing, no rhonchi Cardiovascular: RRR, no rub Gastrointestinal: soft, non-tender, positive bowel sounds Musculoskeletal: no edema Neurological: moves all 4 limbs Dx/Plan - Plan DVT proph w/SCDs IMPRESSION: 1. DM2 2. Obesity BMI 33.2 3. Hypokalemia - replaced 4. Spinal cord tumor s/p excision PLAN: * Cont sliding scale/Metformin * Change diet to ADA * Cont to monitor * Cont Glucose check ACHS * change Pepcid to PO * Add Sen-S Review of Systems - Review of Systems Respiratory: negative: Cough, Dry, Shortness of Breath, Hemoptysis, SOB with Excertion, Pleuritic Pain, Sputum, Wheezing Cardiovascular: negative: chest pain, palpitations, orthopnea, paroxysmal nocturnal dyspnea, edema, light headedness - Medications/Allergies Allergies/Adverse Reactions: Allergies Allergy/AdvReac Type Severity Reaction Status Date / Time No Known Drug Allergies Allergy Verified 08/14/17 23:21 Medications: Current Medications Acetaminophen (Tylenol) 650 mg PO Q4H PRN PRN Reason: Headache/Fever or Pain Hydrocodone Bitart/Acetaminophen ([place] 5/325) 1 tab PO Q4H PRN PRN Reason: Moderate Pain (4-6) Last Admin: 08/17/17 16:22 Dose: 1 tab Al Hydroxide/Mg Hydroxide (Maalox) 30 ml PO Q6H PRN PRN Reason: Heartburn or Indigestion Artificial Tears (Tears Naturale) 0 drop EA EYE PRN PRN PRN Reason: Dry Eyes Calcium Carbonate (Tums) 1,000 mg PO Q4H PRN PRN Reason: Heartburn or Indigestion Dexamethasone (Decadron) 4 mg SLOW IVP Q6HR [facility] Stop: 08/18/17 12:01 Last Admin: 08/17/17 11:37 Dose: 4 mg Dexamethasone (Decadron) 3 mg SLOW IVP Q6HR [facility] Stop: 08/20/17 12:01 Dexamethasone (Decadron) 2 mg SLOW IVP Q6HR [facility] Stop: 08/22/17 12:01 Dexamethasone (Decadron) 1 mg SLOW IVP Q6HR [facility] Stop: 08/24/17 12:01 Dextrose/Water (Dextrose 50%) 25 gm SLOW IVP PRN PRN PRN Reason: Hypoglycemia Docusate Sodium (Colace) 100 mg PO BID [facility] Last Admin: 08/17/17 07:45 Dose: 100 mg Famotidine (Pepcid) 20 mg PO BID [facility] Glucagon (Glucagon) 1 mg IM PRN PRN PRN Reason: Hypoglycemia Guaifenesin (Robitussin Sf) 200 mg PO Q4H PRN PRN Reason: Cough Hydralazine HCl (Apresoline) 10 mg SLOW IVP Q4H PRN PRN Reason: Systolic BP > 180 Dextrose/Water (D5w) 1,000 mls @ 0 mls/hr IV .Q0M PRN; As Directed PRN Reason: Hypoglycemia Insulin Human Lispro (Humalog) 0 units SC .MODERATE SLIDING SC PRN PRN Reason: Moderate Correctional Scale Last Admin: 08/17/17 05:11 Dose: 2 unit Insulin Human Lispro (Humalog) 0 units SC .BEDTIME SLIDING SC PRN PRN Reason: Bedtime Correctional Scale Loperamide HCl (Imodium) 2 mg PO PRN PRN PRN Reason: Diarrhea/Loose Stools Loratadine (Claritin) 10 mg PO DAILYPRN PRN PRN Reason: Sinus Symptoms Metformin HCl (Glucophage) 500 mg PO BID[facility] Last Admin: 08/17/17 16:22 Dose: 500 mg Mineral Oil/White Petrolatum (Eucerin Cream) 0 gm TOP BIDPRN PRN PRN Reason: Dry Skin Morphine Sulfate (Morphine) 2 mg SLOW IVP Q4H PRN PRN Reason: Severe Pain (7-10) Last Admin: 08/17/17 14:39 Dose: 2 mg Ondansetron HCl (Zofran Odt) 4 mg PO Q6H PRN PRN Reason: Nausea/Vomiting Ondansetron HCl (Zofran) 4 mg IVP Q6H PRN PRN Reason: Nausea/Vomiting Last Admin: 08/17/17 00:51 Dose: 4 mg Phenol (Chloraseptic [place] 180 Ml Bot) 0 ml PO PRN PRN PRN Reason: Sore Throat Pregabalin (Lyrica) 50 mg PO BID [facility] Sodium Biphosphate/Sodium Phosphate (Fleet Enema) 133 ml [place] ONE PRN PRN Reason: Constipation Stop: 09/13/17 23:28 Sodium Chloride ([place] Nasal [place] 0.65%) 0 ml EA NARE QIDPRN PRN PRN Reason: Nasal Congestion Tizanidine HCl (Zanaflex) 4 mg PO Q6H PRN PRN Reason: .MUSCLE SPASMS Last Admin: 08/17/17 16:22 Dose: 4 mg Zolpidem Tartrate (Ambien) 5 mg PO HSPRN PRN PRN Reason: Insomnia
[2017-08-17] MEDS: Pregabalin 50 MG CAP PO SCH (20:28)
[2017-08-17] MEDS: Senokot S 8.6-50 MG TAB PO SCH (20:29)
[2017-08-17] MEDS: Famotidine 20 MG TAB PO SCH (20:29)
[2017-08-18] MEDS: Dexamethasone 4 mg/ml Vial SLOW IVP SCH ×4 (05:16→23:28)
[2017-08-18] MEDS: HYDROcodone/Acetaminophen 5/325 mg Tablet PO PRN ×4 (05:16→18:45)
[2017-08-18] MEDS: HumaLOG 300 UNITS/3 ML VIAL SC PRN ×3 (05:17→17:12)
--- NOTE | 2017-08-18 08:18 | PRG ---
DATE OF SERVICE: 08/18/2017 Ms. Iniguez is now postoperative day #2 having undergone multiple level laminectomy and spinal cord t umor resection. The patient is continuing to improve. She does complain of some incisional back liliana n with spasms. Otherwise, states she has almost complete resolution of bilateral lower extremity liliana n. She notes also significant improvement in bilateral lower extremity weakness, especially in the l eft leg. She is very pleased with her outcome postoperatively. She has been minimally ambulating du e to low back pain. We will work on mobilizing her with therapies. She has excellent strength in th e bilateral lower extremities, but perhaps some mild weakness in the left lower extremity. This is s ignificantly improved from her preoperative exam and appears to be improving daily. She has no compl aints of headache. Again, we will work on mobilizing the patient and hope for discharge in the next day or two. She may be a good candidate for inpatient rehabilitation versus home health. We will ke ep the Herrera in another day so that she can become slightly more ambulatory and plan for discontinue of this tomorrow. Please call with any acute changes in patient's neurologic status.
[2017-08-18] MEDS: metFORMIN 500 MG TAB PO SCH ×2 (08:23→17:12)
[2017-08-18] MEDS: Famotidine 20 MG TAB PO SCH ×2 (08:23→20:35)
[2017-08-18] MEDS: Senokot S 8.6-50 MG TAB PO SCH ×2 (08:23→20:34)
[2017-08-18] MEDS: Pregabalin 50 MG CAP PO SCH ×2 (08:23→20:34)
[2017-08-18] MEDS: tiZANidine HCl 4 MG TAB PO PRN ×2 (08:32→17:12)
--- NOTE | 2017-08-18 17:44 | PRG ---
DATE OF SERVICE: 08/18/2017 SERVICE: Pulmonary Medicine. INTERVAL HISTORY: The patient is doing fantastic from a cardiovascular and respiratory standpoint. She is breathing comfortably. Her strength is improving a little bit and she was actually able to walk. Otherwise, there has been no interval change to her condition. PHYSICAL EXAMINATION: VITAL SIGNS: Afebrile, pulse 66, blood pressure 101/65, respirations 16, saturation 94% on room air. GENERAL: The patient is awake, alert, no apparent distress. LUNGS: Decent air entry with no prolonged expiratory phase, wheezing, rhonchi or crackles. HEART: Normal rate, regular. ABDOMEN: Soft, nontender, and nondistended. Bowel sounds are positive. MUSCULOSKELETAL: No cyanosis or clubbing. No pitting in the bilateral lower extremities. NEUROLOGIC: Grossly nonfocal. LABORATORY DATA: Blood sugars ranged 146-202. ASSESSMENT: 1. Type 2 diabetes mellitus. 2. Laminectomy and excision of extramedullary tumor involving thoracic and lumbar segments, postop day #2. 3. Paraplegia, improving. DISCUSSION AND PLAN: The patient is improving strength in the bilateral lower extremities. She continues to have a little bit of weakness in the bilateral lower extremities. This is rapidly improving; however. She has no further requirements for inpatient Pulmonary or Critical Care opinion. As such, I will sign off. MTDD
--- NOTE | 2017-08-18 19:13 | PDOC.PN ---
- Subjective Encounter Start Date: 08/18/17 Encounter Start Time: 11:00 Patient seen and examined. No new complaints. No overnight events - Objective Resuscitation Status: Resuscitation Status FULL:Full Resuscitation MAR Reviewed: Yes Vital Signs & Weight: Vital Signs (12 hours) Temp Pulse Pulse Pulse Pulse Resp BP 08/18/17 17:01 97.7 F 72 20 08/18/17 11:25 97.4 F L 66 16 08/18/17 10:46 64 65 62 107/70 08/18/17 08:00 98.4 F 70 14 08/18/17 07:38 98.4 F 70 14 BP BP BP Pulse Ox Pulse Ox Pulse Ox Pulse Ox 08/18/17 17:01 108/69 94 L 08/18/17 11:25 100/67 92 L 08/18/17 10:46 107/68 101/65 95 96 94 L 08/18/17 08:00 08/18/17 07:38 97/63 94 L Weight Weight 153 lb 9 oz Most Recent Monitor Data Heart Rate from ECG 93 NIBP 122/75 NIBP BP-Mean 86 Respiration from ECG 17 SpO2 94 I&O: 08/17/17 08/18/17 08/19/17 06:59 06:59 06:59 Intake Total 1266 2668 2235 Output Total 1860 3140 2100 Balance -594 -472 135 Result Diagrams: 08/15/17 04:53 08/15/17 04:53 Additional Labs: Accuchecks 08/18/17 08/18/17 08/18/17 17:15 11:24 05:16 POC Glucose 206 H 259 H 202 H 08/17/17 23:21 POC Glucose 195 H Phys Exam - Physical Examination Constitutional: NAD Respiratory: no wheezing, no rhonchi Cardiovascular: RRR, no rub Gastrointestinal: soft, non-tender, positive bowel sounds Musculoskeletal: no edema Neurological: moves all 4 limbs Dx/Plan - Plan DVT proph w/SCDs IMPRESSION: 1. DM2 2. Obesity BMI 33.2 3. Hypokalemia 4. Spinal cord tumor s/p excision PLAN: * Cont sliding scale/Metformin * Cont to monitor * Cont Glucose check ACHS * Cont PT Review of Systems - Review of Systems Respiratory: negative: Cough, Dry, Shortness of Breath, Hemoptysis, SOB with Excertion, Pleuritic Pain, Sputum, Wheezing Cardiovascular: negative: chest pain, palpitations, orthopnea, paroxysmal nocturnal dyspnea, edema, light headedness - Medications/Allergies Allergies/Adverse Reactions: Allergies Allergy/AdvReac Type Severity Reaction Status Date / Time No Known Drug Allergies Allergy Verified 08/14/17 23:21 Medications: Current Medications Acetaminophen (Tylenol) 650 mg PO Q4H PRN PRN Reason: Headache/Fever or Pain Hydrocodone Bitart/Acetaminophen ([place] 5/325) 1 tab PO Q4H PRN PRN Reason: Moderate Pain (4-6) Last Admin: 08/18/17 18:45 Dose: 1 tab Al Hydroxide/Mg Hydroxide (Maalox) 30 ml PO Q6H PRN PRN Reason: Heartburn or Indigestion Artificial Tears (Tears Naturale) 0 drop EA EYE PRN PRN PRN Reason: Dry Eyes Calcium Carbonate (Tums) 1,000 mg PO Q4H PRN PRN Reason: Heartburn or Indigestion Dexamethasone (Decadron) 3 mg SLOW IVP Q6HR [facility] Stop: 08/20/17 12:01 Last Admin: 08/18/17 17:12 Dose: 3 mg Dexamethasone (Decadron) 2 mg SLOW IVP Q6HR [facility] Stop: 08/22/17 12:01 Dexamethasone (Decadron) 1 mg SLOW IVP Q6HR [facility] Stop: 08/24/17 12:01 Dextrose/Water (Dextrose 50%) 25 gm SLOW IVP PRN PRN PRN Reason: Hypoglycemia Famotidine (Pepcid) 20 mg PO BID [facility] Last Admin: 08/18/17 08:23 Dose: 20 mg Glucagon (Glucagon) 1 mg IM PRN PRN PRN Reason: Hypoglycemia Guaifenesin (Robitussin Sf) 200 mg PO Q4H PRN PRN Reason: Cough Hydralazine HCl (Apresoline) 10 mg SLOW IVP Q4H PRN PRN Reason: Systolic BP > 180 Dextrose/Water (D5w) 1,000 mls @ 0 mls/hr IV .Q0M PRN; As Directed PRN Reason: Hypoglycemia Insulin Human Lispro (Humalog) 0 units SC .MODERATE SLIDING SC PRN PRN Reason: Moderate Correctional Scale Last Admin: 08/18/17 17:12 Dose: 4 unit Insulin Human Lispro (Humalog) 0 units SC .BEDTIME SLIDING SC PRN PRN Reason: Bedtime Correctional Scale Last Admin: 08/18/17 05:17 Dose: 2 unit Loperamide HCl (Imodium) 2 mg PO PRN PRN PRN Reason: Diarrhea/Loose Stools Loratadine (Claritin) 10 mg PO DAILYPRN PRN PRN Reason: Sinus Symptoms Metformin HCl (Glucophage) 500 mg PO BID[facility] Last Admin: 08/18/17 17:12 Dose: 500 mg Mineral Oil/White Petrolatum (Eucerin Cream) 0 gm TOP BIDPRN PRN PRN Reason: Dry Skin Morphine Sulfate (Morphine) 2 mg SLOW IVP Q4H PRN PRN Reason: Severe Pain (7-10) Last Admin: 08/17/17 19:10 Dose: 2 mg Ondansetron HCl (Zofran Odt) 4 mg PO Q6H PRN PRN Reason: Nausea/Vomiting Ondansetron HCl (Zofran) 4 mg IVP Q6H PRN PRN Reason: Nausea/Vomiting Last Admin: 08/17/17 00:51 Dose: 4 mg Phenol (Chloraseptic [place] 180 Ml Bot) 0 ml PO PRN PRN PRN Reason: Sore Throat Pregabalin (Lyrica) 50 mg PO BID [facility] Last Admin: 08/18/17 08:23 Dose: 50 mg Senna/Docusate Sodium (Senokot S) 1 tab PO BID [facility] Last Admin: 08/18/17 08:23 Dose: 1 tab Sodium Biphosphate/Sodium Phosphate (Fleet Enema) 133 ml [place] ONE PRN PRN Reason: Constipation Stop: 09/13/17 23:28 Sodium Chloride ([place] Nasal [place] 0.65%) 0 ml EA NARE QIDPRN PRN PRN Reason: Nasal Congestion Tizanidine HCl (Zanaflex) 4 mg PO Q6H PRN PRN Reason: .MUSCLE SPASMS Last Admin: 08/18/17 17:12 Dose: 4 mg Zolpidem Tartrate (Ambien) 5 mg PO HSPRN PRN PRN Reason: Insomnia
[2017-08-19] MEDS: Dexamethasone 4 mg/ml Vial SLOW IVP SCH ×4 (05:27→23:49)
[2017-08-19] MEDS: HYDROcodone/Acetaminophen 5/325 mg Tablet PO PRN ×5 (05:34→23:48)
[2017-08-19] MEDS: Pregabalin 50 MG CAP PO SCH ×2 (08:29→20:31)
[2017-08-19] MEDS: tiZANidine HCl 4 MG TAB PO PRN ×2 (08:29→14:41)
[2017-08-19] MEDS: Senokot S 8.6-50 MG TAB PO SCH ×2 (08:30→20:31)
[2017-08-19] MEDS: Famotidine 20 MG TAB PO SCH ×2 (08:30→20:31)
[2017-08-19] MEDS: metFORMIN 500 MG TAB PO SCH ×2 (08:30→17:21)
[2017-08-19] MEDS ORDERED: glipiZIDE 5 MG TAB PO SCH (12:45)
[2017-08-19] MEDS: HumaLOG 300 UNITS/3 ML VIAL SC PRN ×3 (12:55→20:35)
--- NOTE | 2017-08-19 16:38 | PRG ---
DATE OF SERVICE: 08/19/2017 Ms. Iniguez has made an excellent recovery in the early postoperative period following her surgery fo r a very long schwannoma. I am very pleased with how she is doing, and I have let the patient know t hat she moves her extremities with excellent strength and has even been mobilizing. We will continue to work on activity as tolerated and she may be able to even be dismissed home; however, this is dep endent upon how she is doing. We were just removed her Herrera catheter. Her wound has been dry.
[2017-08-19] MEDS ORDERED: HYDROcodone/Acetaminophen 5/325 mg Tablet PO PRN (16:59)
[2017-08-19] MEDS ORDERED: traMADol HCl 50 MG TAB PO PRN (16:59)
[2017-08-19] MEDS ORDERED: Polyethylene Glycol 3350 17 GM Packet PO PRN (18:18)
[2017-08-19] MEDS ORDERED: Fluconazole 100 MG TAB PO SCH (18:30)
--- NOTE | 2017-08-19 22:37 | PDOC.PN ---
- Subjective Encounter Start Date: 08/19/17 Encounter Start Time: 14:00 Patient seen and examined. No new complaints. No overnight events. Overall strength improving. - Objective Resuscitation Status: Resuscitation Status FULL:Full Resuscitation MAR Reviewed: Yes Vital Signs & Weight: Vital Signs (12 hours) Temp Pulse Resp BP Pulse Ox 08/19/17 19:55 97.6 F 64 16 08/19/17 19:54 97.6 F 64 16 103/67 96 08/19/17 16:00 97.8 F 72 16 99/67 95 08/19/17 11:43 98.4 F 65 18 115/81 95 Weight Weight 153 lb 9 oz Most Recent Monitor Data Heart Rate from ECG 93 NIBP 122/75 NIBP BP-Mean 86 Respiration from ECG 17 SpO2 94 I&O: 08/18/17 08/19/17 08/20/17 06:59 06:59 06:59 Intake Total 2668 2715 1250 Output Total 3140 3400 700 Balance -472 -462 550 Result Diagrams: 08/15/17 04:53 08/15/17 04:53 Additional Labs: Accuchecks 08/19/17 08/19/17 08/19/17 20:16 16:23 12:10 POC Glucose 273 H 211 H 236 H 08/19/17 08/18/17 05:28 22:00 POC Glucose 179 H 223 H Phys Exam - Physical Examination Constitutional: NAD Respiratory: no wheezing, no rhonchi Cardiovascular: RRR, no rub Gastrointestinal: soft, non-tender, positive bowel sounds Musculoskeletal: no edema Neurological: non-focal, moves all 4 limbs Dx/Plan - Plan DVT proph w/SCDs IMPRESSION: 1. DM2 - uncontrolled 2. Obesity BMI 33.2 3. Hypokalemia - replaced 4. Spinal cord tumor s/p excision PLAN: * Add Glipizide 5 mg daily * Cont sliding scale/Metformin * Cont Glucose check ACHS * Cont PT Review of Systems - Review of Systems Respiratory: negative: Cough, Dry, Shortness of Breath, Hemoptysis, SOB with Excertion, Pleuritic Pain, Sputum, Wheezing Cardiovascular: negative: chest pain, palpitations, orthopnea, paroxysmal nocturnal dyspnea, edema, light headedness, other - Medications/Allergies Allergies/Adverse Reactions: Allergies Allergy/AdvReac Type Severity Reaction Status Date / Time No Known Drug Allergies Allergy Verified 08/14/17 23:21 Medications: Current Medications Acetaminophen (Tylenol) 650 mg PO Q4H PRN PRN Reason: Headache/Fever or Pain Hydrocodone Bitart/Acetaminophen ([place] 5/325) 1 tab PO Q4H PRN PRN Reason: Moderate Pain (4-6) Last Admin: 08/19/17 13:27 Dose: 1 tab Hydrocodone Bitart/Acetaminophen ([place] 5/325) 1 tab PO Q4H PRN PRN Reason: Mild-Moderate Pain (1-5) Hydrocodone Bitart/Acetaminophen ([place] 5/325) 2 tab PO Q4H PRN PRN Reason: Moderate to Severe Pain (6-10) Last Admin: 08/19/17 17:20 Dose: 2 tab Al Hydroxide/Mg Hydroxide (Maalox) 30 ml PO Q6H PRN PRN Reason: Heartburn or Indigestion Artificial Tears (Tears Naturale) 0 drop EA EYE PRN PRN PRN Reason: Dry Eyes Calcium Carbonate (Tums) 1,000 mg PO Q4H PRN PRN Reason: Heartburn or Indigestion Dexamethasone (Decadron) 3 mg SLOW IVP Q6HR [facility] Stop: 08/20/17 12:01 Last Admin: 08/19/17 17:21 Dose: 3 mg Dexamethasone (Decadron) 2 mg SLOW IVP Q6HR [facility] Stop: 08/22/17 12:01 Dexamethasone (Decadron) 1 mg SLOW IVP Q6HR [facility] Stop: 08/24/17 12:01 Dextrose/Water (Dextrose 50%) 25 gm SLOW IVP PRN PRN PRN Reason: Hypoglycemia Famotidine (Pepcid) 20 mg PO BID [facility] Last Admin: 08/19/17 20:31 Dose: 20 mg Glipizide (Glucotrol) 5 mg PO DAILY-[facility] Glucagon (Glucagon) 1 mg IM PRN PRN PRN Reason: Hypoglycemia Guaifenesin (Robitussin Sf) 200 mg PO Q4H PRN PRN Reason: Cough Hydralazine HCl (Apresoline) 10 mg SLOW IVP Q4H PRN PRN Reason: Systolic BP > 180 Dextrose/Water (D5w) 1,000 mls @ 0 mls/hr IV .Q0M PRN; As Directed PRN Reason: Hypoglycemia Insulin Human Lispro (Humalog) 0 units SC .MODERATE SLIDING SC PRN PRN Reason: Moderate Correctional Scale Last Admin: 08/19/17 17:21 Dose: 4 unit Insulin Human Lispro (Humalog) 0 units SC .BEDTIME SLIDING SC PRN PRN Reason: Bedtime Correctional Scale Last Admin: 08/19/17 20:35 Dose: 3 unit Loperamide HCl (Imodium) 2 mg PO PRN PRN PRN Reason: Diarrhea/Loose Stools Loratadine (Claritin) 10 mg PO DAILYPRN PRN PRN Reason: Sinus Symptoms Metformin HCl (Glucophage) 500 mg PO BID-[facility] Last Admin: 08/19/17 17:21 Dose: 500 mg Mineral Oil/White Petrolatum (Eucerin Cream) 0 gm TOP BIDPRN PRN PRN Reason: Dry Skin Morphine Sulfate (Morphine) 2 mg SLOW IVP Q4H PRN PRN Reason: Severe Pain (7-10) Last Admin: 08/17/17 19:10 Dose: 2 mg Ondansetron HCl (Zofran Odt) 4 mg PO Q6H PRN PRN Reason: Nausea/Vomiting Ondansetron HCl (Zofran) 4 mg IVP Q6H PRN PRN Reason: Nausea/Vomiting Last Admin: 08/17/17 00:51 Dose: 4 mg Phenol (Chloraseptic [place] 180 Ml Bot) 0 ml PO PRN PRN PRN Reason: Sore Throat Polyethylene Glycol (Miralax) 17 gm PO DAILY PRN PRN Reason: Constipation Last Admin: 08/19/17 18:51 Dose: 17 gm Pregabalin (Lyrica) 50 mg PO BID [facility] Last Admin: 08/19/17 20:31 Dose: 50 mg Senna/Docusate Sodium (Senokot S) 1 tab PO BID [facility] Last Admin: 08/19/17 20:31 Dose: 1 tab Sodium Biphosphate/Sodium Phosphate (Fleet Enema) 133 ml [place] ONE PRN PRN Reason: Constipation Stop: 09/13/17 23:28 Sodium Chloride ([place] Nasal [place] 0.65%) 0 ml EA NARE QIDPRN PRN PRN Reason: Nasal Congestion Tizanidine HCl (Zanaflex) 4 mg PO Q6H PRN PRN Reason: .MUSCLE SPASMS Last Admin: 08/19/17 14:41 Dose: 4 mg Tramadol HCl (Ultram) 50 mg PO Q4H PRN PRN Reason: Breakthrough Pain Zolpidem Tartrate (Ambien) 5 mg PO HSPRN PRN PRN Reason: Insomnia
[2017-08-20] MEDS: tiZANidine HCl 4 MG TAB PO PRN ×2 (01:04→21:01)
[2017-08-20] MEDS: HumaLOG 300 UNITS/3 ML VIAL SC PRN ×3 (05:22→21:01)
[2017-08-20] MEDS: Dexamethasone 4 mg/ml Vial SLOW IVP SCH ×3 (05:22→18:49)
[2017-08-20] MEDS ORDERED: glipiZIDE 5 MG TAB PO SCH (07:30)
[2017-08-20] MEDS: glipiZIDE 5 MG TAB PO SCH ×2 (08:13→17:27)
[2017-08-20] MEDS: Pregabalin 50 MG CAP PO SCH ×2 (09:21→20:59)
[2017-08-20] MEDS: Famotidine 20 MG TAB PO SCH ×2 (09:21→21:00)
[2017-08-20] MEDS: metFORMIN 500 MG TAB PO SCH ×2 (09:21→17:27)
[2017-08-20] MEDS: Senokot S 8.6-50 MG TAB PO SCH ×2 (09:21→21:00)
[2017-08-20] MEDS: HYDROcodone/Acetaminophen 5/325 mg Tablet PO PRN ×2 (09:25→22:06)
[2017-08-20] MEDS ORDERED: Bisacodyl 10 MG SUPP PR PRN (12:27)
[2017-08-20] MEDS ORDERED: Fleet Enema 133 ML BOT PR PRN (12:28)
[2017-08-20] MEDS ORDERED: Insulin Detemir 100 UNITS/ML 10 UNITS SC SCH ×2 (12:30)
[2017-08-20] MEDS ORDERED: Diabetic Tussin 200 MG/10 ML UDCUP PO PRN (12:31)
--- NOTE | 2017-08-20 15:26 | PRG ---
DATE OF SERVICE: 08/20/2017 Ajith Bright PA-C, dictating for Sami Friedman MD SUBJECTIVE: Ms. Iniguez is now postoperative day #4, having undergone multiple thoracic and lumbar l aminectomies for her spinal cord tumor. Her pathology is currently pending. The patient overall sta jey that she does have some incisional back pain, but this improves with medication. She states the numbness and tingling into the bilateral feet are also improving daily. She has been walking with ph ysical therapy. She states she had one episode of urinary incontinence, but states this may be relat ed to difficulty with mobility. She denies any saddle anesthesia. She has good strength in the bila teral lower extremities and again her strength is improving daily. Her incision was viewed yesterday and was clean, dry, and intact without any signs of drainage or dehiscence. We will continue to mon itor the patient, although as she continues to improve, she may be able for discharge as early as daria ow if she has enough support at home. I will discuss this with the patient, but again hope for agatha pruitt in the next day or two to home as again she is improving very well.
--- NOTE | 2017-08-20 22:09 | PDOC.PN ---
- Subjective Encounter Start Date: 08/20/17 Encounter Start Time: 12:30 Patient seen and examined. No new complaints. No overnight events - Objective Resuscitation Status: Resuscitation Status FULL:Full Resuscitation MAR Reviewed: Yes Vital Signs & Weight: Vital Signs (12 hours) Temp Pulse Resp BP Pulse Ox 08/20/17 19:39 98.1 F 66 17 115/77 98 08/20/17 15:25 98.1 F 66 18 124/82 98 08/20/17 11:30 97.9 F 69 24 H 120/87 99 Weight Weight 153 lb 9 oz Most Recent Monitor Data Heart Rate from ECG 93 NIBP 122/75 NIBP BP-Mean 86 Respiration from ECG 17 SpO2 94 I&O: 08/19/17 08/20/17 08/21/17 06:59 06:59 06:59 Intake Total 2715 1250 1220 Output Total 3400 700 Balance -181 669 5352 Result Diagrams: 08/15/17 04:53 08/15/17 04:53 Additional Labs: Accuchecks 08/20/17 08/20/17 08/20/17 20:03 17:20 13:35 POC Glucose 283 H 137 H 190 H 08/20/17 08/20/17 11:02 05:22 POC Glucose 279 H 222 H Phys Exam - Physical Examination Constitutional: NAD Respiratory: no wheezing, no rhonchi Cardiovascular: RRR, no rub Gastrointestinal: soft, non-tender, positive bowel sounds Musculoskeletal: no edema Neurological: moves all 4 limbs Dx/Plan - Plan out of bed/ambulate, DVT proph w/SCDs IMPRESSION: 1. DM2 - uncontrolled 2. Obesity BMI 33.2 3. Hypokalemia - replaced 4. Spinal cord tumor s/p excision PLAN: * Cont Glipizide 5 mg daily * Cont sliding scale/Metformin * Add Levemir * Consult Director Of Donor Relations * Cont Glucose check ACHS * Cont PT Review of Systems - Review of Systems Respiratory: negative: Cough, Dry, Shortness of Breath, Hemoptysis, SOB with Excertion, Pleuritic Pain, Sputum, Wheezing Cardiovascular: negative: chest pain, palpitations, orthopnea, paroxysmal nocturnal dyspnea, edema, light headedness, other Gastrointestinal: negative: Nausea, Vomiting, Abdominal Pain, Diarrhea, Constipation, Melena, Hematochezia, Other - Medications/Allergies Allergies/Adverse Reactions: Allergies Allergy/AdvReac Type Severity Reaction Status Date / Time No Known Drug Allergies Allergy Verified 08/14/17 23:21 Medications: Current Medications Acetaminophen (Tylenol) 650 mg PO Q4H PRN PRN Reason: Headache/Fever or Pain Hydrocodone Bitart/Acetaminophen ([place] 5/325) 1 tab PO Q4H PRN PRN Reason: Moderate Pain (4-6) Last Admin: 08/19/17 13:27 Dose: 1 tab Hydrocodone Bitart/Acetaminophen ([place] 5/325) 1 tab PO Q4H PRN PRN Reason: Mild-Moderate Pain (1-5) Last Admin: 08/20/17 18:12 Dose: 1 tab Hydrocodone Bitart/Acetaminophen ([place] 5/325) 2 tab PO Q4H PRN PRN Reason: Moderate to Severe Pain (6-10) Last Admin: 08/20/17 09:25 Dose: 2 tab Al Hydroxide/Mg Hydroxide (Maalox) 30 ml PO Q6H PRN PRN Reason: Heartburn or Indigestion Artificial Tears (Tears Naturale) 0 drop EA EYE PRN PRN PRN Reason: Dry Eyes Bisacodyl (Dulcolax) 10 mg [place] DAILYPRN PRN PRN Reason: Constipation Last Admin: 08/20/17 13:45 Dose: 10 mg Calcium Carbonate (Tums) 1,000 mg PO Q4H PRN PRN Reason: Heartburn or Indigestion Dexamethasone (Decadron) 2 mg SLOW IVP Q6HR [facility] Stop: 08/22/17 12:01 Last Admin: 08/20/17 18:49 Dose: 2 mg Dexamethasone (Decadron) 1 mg SLOW IVP Q6HR [facility] Stop: 08/24/17 12:01 Dextrose/Water (Dextrose 50%) 25 gm SLOW IVP PRN PRN PRN Reason: Hypoglycemia Famotidine (Pepcid) 20 mg PO BID [facility] Last Admin: 08/20/17 21:00 Dose: 20 mg Glipizide (Glucotrol) 5 mg PO BID-[facility] Last Admin: 08/20/17 17:27 Dose: 5 mg Glucagon (Glucagon) 1 mg IM PRN PRN PRN Reason: Hypoglycemia Guaifenesin (Robitussin Sf) 200 mg PO Q4H PRN PRN Reason: Cough Hydralazine HCl (Apresoline) 10 mg SLOW IVP Q4H PRN PRN Reason: Systolic BP > 180 Dextrose/Water (D5w) 1,000 mls @ 0 mls/hr IV .Q0M PRN; As Directed PRN Reason: Hypoglycemia Insulin Detemir 10 units/ (Miscellaneous Medication) 0.1 mls @ 0 mls/hr [facility] Insulin Human Lispro (Humalog) 0 units SC .MODERATE SLIDING SC PRN PRN Reason: Moderate Correctional Scale Last Admin: 08/20/17 13:10 Dose: 6 unit Insulin Human Lispro (Humalog) 0 units SC .BEDTIME SLIDING SC PRN PRN Reason: Bedtime Correctional Scale Last Admin: 08/20/17 21:01 Dose: 3 unit Loperamide HCl (Imodium) 2 mg PO PRN PRN PRN Reason: Diarrhea/Loose Stools Loratadine (Claritin) 10 mg PO DAILYPRN PRN PRN Reason: Sinus Symptoms Metformin HCl (Glucophage) 1,000 mg PO BID-[facility] Last Admin: 08/20/17 17:27 Dose: 1,000 mg Mineral Oil/White Petrolatum (Eucerin Cream) 0 gm TOP BIDPRN PRN PRN Reason: Dry Skin Morphine Sulfate (Morphine) 2 mg SLOW IVP Q4H PRN PRN Reason: Severe Pain (7-10) Last Admin: 08/17/17 19:10 Dose: 2 mg Ondansetron HCl (Zofran Odt) 4 mg PO Q6H PRN PRN Reason: Nausea/Vomiting Ondansetron HCl (Zofran) 4 mg IVP Q6H PRN PRN Reason: Nausea/Vomiting Last Admin: 08/17/17 00:51 Dose: 4 mg Phenol (Chloraseptic [place] 180 Ml Bot) 0 ml PO PRN PRN PRN Reason: Sore Throat Polyethylene Glycol (Miralax) 17 gm PO DAILY PRN PRN Reason: Constipation Last Admin: 08/19/17 18:51 Dose: 17 gm Pregabalin (Lyrica) 50 mg PO BID [facility] Last Admin: 08/20/17 20:59 Dose: 50 mg Senna/Docusate Sodium (Senokot S) 2 tab PO BID [facility] Last Admin: 08/20/17 21:00 Dose: 2 tab Sodium Biphosphate/Sodium Phosphate (Fleet Enema) 133 ml SD ONE PRN PRN Reason: Constipation Stop: 09/13/17 23:28 Sodium Biphosphate/Sodium Phosphate (Fleet Enema) 133 ml SD DAILY PRN PRN Reason: Constipation Sodium Chloride ([place] Nasal [place] 0.65%) 0 ml EA NARE QIDPRN PRN PRN Reason: Nasal Congestion Sodium Chloride (Flush - Normal Saline) 10 ml IVF Q12HR [place] Last Admin: 08/20/17 21:01 Dose: 10 ml Sodium Chloride (Flush - Normal Saline) 10 ml IVF PRN PRN PRN Reason: Saline Flush Last Admin: 08/20/17 18:50 Dose: 10 ml Tizanidine HCl (Zanaflex) 4 mg PO Q6H PRN PRN Reason: .MUSCLE SPASMS Last Admin: 08/20/17 21:01 Dose: 4 mg Tramadol HCl (Ultram) 50 mg PO Q4H PRN PRN Reason: Breakthrough Pain Zolpidem Tartrate (Ambien) 5 mg PO HSPRN PRN PRN Reason: Insomnia
[2017-08-21] MEDS: Dexamethasone 4 mg/ml Vial SLOW IVP SCH ×3 (00:17→11:00)
[2017-08-21] MEDS: glipiZIDE 5 MG TAB PO SCH ×2 (06:50→15:59)
[2017-08-21] MEDS: HumaLOG 300 UNITS/3 ML VIAL SC PRN ×2 (06:50→10:57)
[2017-08-21] MEDS ORDERED: Insulin Detemir 100 UNITS/ML 10 UNITS SC SCH ×2 (09:00)
[2017-08-21] MEDS: metFORMIN 500 MG TAB PO SCH ×2 (09:11→17:54)
[2017-08-21] MEDS: Famotidine 20 MG TAB PO SCH (09:11)
[2017-08-21] MEDS: Senokot S 8.6-50 MG TAB PO SCH (09:12)
[2017-08-21] MEDS: Pregabalin 50 MG CAP PO SCH (09:12)
[2017-08-21] MEDS: HYDROcodone/Acetaminophen 5/325 mg Tablet PO PRN (10:55)
[2017-08-21] MEDS: Ondansetron HCl/PF 4 MG/2 ML Vial IVP PRN (11:04)
--- NOTE | 2017-08-21 12:51 | PRG ---
DATE OF SERVICE: 08/21/2017 This is Ajith Bright PA-C dictating for Sami Friedman M.D. Ms. Iniguez is now postoperative day #5, having undergone multiple level thoracic and lumbar laminect omies for spinal tumor resection. The patient continues to do well postoperatively. She states the numbness and tingling into her bilateral legs and bilateral feet improve every day. She does have so me incisional back pain, but does not complain of radicular issues. The weakness that she experience d preoperatively has almost completely resolved. She has been walking with a walker and working with therapy. She has good strength in the bilateral lower extremities with intact sensation to light to uch throughout. Her incision is dressed and when uncovered, it is clean and dry without any dehiscen ce or drainage. At this time, the patient has reached criteria for discharge. She states that she d oes have appropriate help at home and would like to go home. I have arranged for her to have appropr iate outpatient followups and have reviewed postoperative activity restrictions. Again postoperative ly, the patient is doing well. It should be noted that at this time, the patient's surgical patholog y specimen is still pending. So we will follow up on this on an outpatient basis. Ample opportunity was given to the patient to discuss her questions and concerns and she is pleased with her outcome p ostoperatively.
--- NOTE | 2017-08-21 14:14 | PDOC.PN ---
- Subjective Encounter Start Date: 08/21/17 Encounter Start Time: 14:12 Subjective: feels well. working w PT. -: no new complaints.no DC needs - Objective Resuscitation Status: Resuscitation Status FULL:Full Resuscitation MAR Reviewed: Yes Vital Signs & Weight: Vital Signs (12 hours) Temp Pulse Resp BP Pulse Ox 08/21/17 11:28 97.9 F 55 L 15 116/76 97 08/21/17 08:00 98.0 F 52 L 16 96 08/21/17 07:56 98.0 F 52 L 16 111/73 96 08/21/17 04:10 98.5 F 63 16 102/65 98 Weight Weight 153 lb 9 oz Most Recent Monitor Data Heart Rate from ECG 93 NIBP 122/75 NIBP BP-Mean 86 Respiration from ECG 17 SpO2 94 I&O: 08/20/17 08/21/17 08/22/17 06:59 06:59 06:59 Intake Total 1250 1760 Output Total 700 Balance 550 1760 Result Diagrams: 08/15/17 04:53 08/15/17 04:53 Additional Labs: Accuchecks 08/21/17 08/21/17 08/21/17 10:32 05:52 03:14 POC Glucose 228 H 194 H 181 H 08/20/17 08/20/17 20:03 17:20 POC Glucose 283 H 137 H Microbiology 08/15/17 13:05 Urine buenrostro catheter Urine Culture - Final NO GROWTH AT 48 HOURS Phys Exam - Physical Examination Constitutional: NAD HEENT: PERRLA, moist MMs, sclera anicteric, oral pharynx no lesions Neck: no nodes, no JVD, supple, full ROM Respiratory: no wheezing, no rales, no rhonchi, wheezing present, clear to auscultation bilateral Cardiovascular: RRR, no significant murmur, no rub, gallop Gastrointestinal: soft, non-tender, no distention, positive bowel sounds Musculoskeletal: no edema, pulses present Neurological: non-focal, normal sensation, moves all 4 limbs Psychiatric: normal affect, A&O x 3 Skin: no rash Dx/Plan (1) Mass of spinal cord Code(s): G95.9 - DISEASE OF SPINAL CORD, UNSPECIFIED Status: Acute Comment: s/p excision (2) Diabetes type 2, controlled Code(s): E11.9 - TYPE 2 DIABETES MELLITUS WITHOUT COMPLICATIONS Status: Chronic (3) Obesity (BMI 30.0-34.9) Code(s): E66.9 - OBESITY, UNSPECIFIED Status: Chronic (4) Hypokalemia Code(s): E87.6 - HYPOKALEMIA Status: Resolved - Plan plan discussed w/ family, DVT proph w/SCDs OK to DC form IM stand point.prescription given for Glipizide -: cont metformin. -: Pt encouraged to check sugars at home & F/U w PCP -: urine Cx negative so far.HD stable * . Review of Systems - Review of Systems Constitutional: negative: fever, chills, sweats, weakness, malaise, other Eyes: negative: Pain, Vision Change, Conjunctivae Inflammation, Eyelid Inflammation, Redness, Other ENT: negative: Ear Pain, Ear Discharge, Nose Pain, Nose Discharge, Nose Congestion, Mouth Pain, Mouth Swelling, Throat Pain, Throat Swelling, Other Respiratory: negative: Cough, Dry, Shortness of Breath, Hemoptysis, SOB with Excertion, Pleuritic Pain, Sputum, Wheezing Cardiovascular: negative: chest pain, palpitations, orthopnea, paroxysmal nocturnal dyspnea, edema, light headedness, other Gastrointestinal: negative: Nausea, Vomiting, Abdominal Pain, Diarrhea, Constipation, Melena, Hematochezia, Other Genitourinary: negative: Dysuria, Frequency, Incontinence, Hematuria, Retention , Other Musculoskeletal: negative: Neck Pain, Shoulder Pain, Arm Pain, Back Pain, Hand Pain, Leg Pain, Foot Pain, Other Skin: negative: Rash, Lesions, [place], Bruising, Other Neurological: negative: Weakness, Numbness, Incoordination, Change in Speech, Confusion, Seizures, Other - Medications/Allergies Allergies/Adverse Reactions: Allergies Allergy/AdvReac Type Severity Reaction Status Date / Time No Known Drug Allergies Allergy Verified 08/14/17 23:21 Medications: Current Medications Acetaminophen (Tylenol) 650 mg PO Q4H PRN PRN Reason: Headache/Fever or Pain Hydrocodone Bitart/Acetaminophen ([place] 5/325) 1 tab PO Q4H PRN PRN Reason: Moderate Pain (4-6) Last Admin: 08/19/17 13:27 Dose: 1 tab Hydrocodone Bitart/Acetaminophen ([place] 5/325) 1 tab PO Q4H PRN PRN Reason: Mild-Moderate Pain (1-5) Last Admin: 08/20/17 18:12 Dose: 1 tab Hydrocodone Bitart/Acetaminophen ([place] 5/325) 2 tab PO Q4H PRN PRN Reason: Moderate to Severe Pain (6-10) Last Admin: 08/21/17 10:55 Dose: 2 tab Al Hydroxide/Mg Hydroxide (Maalox) 30 ml PO Q6H PRN PRN Reason: Heartburn or Indigestion Artificial Tears (Tears Naturale) 0 drop EA EYE PRN PRN PRN Reason: Dry Eyes Bisacodyl (Dulcolax) 10 mg [place] DAILYPRN PRN PRN Reason: Constipation Last Admin: 08/20/17 13:45 Dose: 10 mg Calcium Carbonate (Tums) 1,000 mg PO Q4H PRN PRN Reason: Heartburn or Indigestion Dexamethasone (Decadron) 2 mg SLOW IVP Q6HR [facility] Stop: 08/22/17 12:01 Last Admin: 08/21/17 11:00 Dose: 2 mg Dexamethasone (Decadron) 1 mg SLOW IVP Q6HR [facility] Stop: 08/24/17 12:01 Dextrose/Water (Dextrose 50%) 25 gm SLOW IVP PRN PRN PRN Reason: Hypoglycemia Famotidine (Pepcid) 20 mg PO BID [facility] Last Admin: 08/21/17 09:11 Dose: 20 mg Glipizide (Glucotrol) 5 mg PO BID-[facility] Last Admin: 08/21/17 06:50 Dose: 5 mg Glucagon (Glucagon) 1 mg IM PRN PRN PRN Reason: Hypoglycemia Guaifenesin (Robitussin Sf) 200 mg PO Q4H PRN PRN Reason: Cough Hydralazine HCl (Apresoline) 10 mg SLOW IVP Q4H PRN PRN Reason: Systolic BP > 180 Dextrose/Water (D5w) 1,000 mls @ 0 mls/hr IV .Q0M PRN; As Directed PRN Reason: Hypoglycemia Insulin Detemir 10 units/ (Miscellaneous Medication) 0.1 mls @ 0 mls/hr SC QAM [facility] Last Admin: 08/21/17 09:12 Dose: 0.1 mls Insulin Human Lispro (Humalog) 0 units SC .MODERATE SLIDING SC PRN PRN Reason: Moderate Correctional Scale Last Admin: 08/21/17 10:57 Dose: 4 unit Insulin Human Lispro (Humalog) 0 units SC .BEDTIME SLIDING SC PRN PRN Reason: Bedtime Correctional Scale Last Admin: 08/20/17 21:01 Dose: 3 unit Loperamide HCl (Imodium) 2 mg PO PRN PRN PRN Reason: Diarrhea/Loose Stools Loratadine (Claritin) 10 mg PO DAILYPRN PRN PRN Reason: Sinus Symptoms Metformin HCl (Glucophage) 1,000 mg PO BID-[facility] Last Admin: 08/21/17 09:11 Dose: 1,000 mg Mineral Oil/White Petrolatum (Eucerin Cream) 0 gm TOP BIDPRN PRN PRN Reason: Dry Skin Morphine Sulfate (Morphine) 2 mg SLOW IVP Q4H PRN PRN Reason: Severe Pain (7-10) Last Admin: 08/17/17 19:10 Dose: 2 mg Ondansetron HCl (Zofran Odt) 4 mg PO Q6H PRN PRN Reason: Nausea/Vomiting Ondansetron HCl (Zofran) 4 mg IVP Q6H PRN PRN Reason: Nausea/Vomiting Last Admin: 08/21/17 11:04 Dose: 4 mg Phenol (Chloraseptic [employer] 180 Ml Bot) 0 ml PO PRN PRN PRN Reason: Sore Throat Polyethylene Glycol (Miralax) 17 gm PO DAILY PRN PRN Reason: Constipation Last Admin: 08/19/17 18:51 Dose: 17 gm Pregabalin (Lyrica) 50 mg PO BID [facility] Last Admin: 08/21/17 09:12 Dose: 50 mg Senna/Docusate Sodium (Senokot S) 2 tab PO BID [facility] Last Admin: 08/21/17 09:12 Dose: 2 tab Sodium Biphosphate/Sodium Phosphate (Fleet Enema) 133 ml [place] ONE PRN PRN Reason: Constipation Stop: 09/13/17 23:28 Sodium Biphosphate/Sodium Phosphate (Fleet Enema) 133 ml ND DAILY PRN PRN Reason: Constipation Sodium Chloride ([place] Nasal [employer] 0.65%) 0 ml EA NARE QIDPRN PRN PRN Reason: Nasal Congestion Sodium Chloride (Flush - Normal Saline) 10 ml IVF Q12HR [facility] Last Admin: 08/21/17 09:13 Dose: 10 ml Sodium Chloride (Flush - Normal Saline) 10 ml IVF PRN PRN PRN Reason: Saline Flush Last Admin: 08/20/17 18:50 Dose: 10 ml Tizanidine HCl (Zanaflex) 4 mg PO Q6H PRN PRN Reason: .MUSCLE SPASMS Last Admin: 08/20/17 21:01 Dose: 4 mg Tramadol HCl (Ultram) 50 mg PO Q4H PRN PRN Reason: Breakthrough Pain Last Admin: 08/21/17 03:18 Dose: 50 mg Zolpidem Tartrate (Ambien) 5 mg PO HSPRN PRN PRN Reason: Insomnia
[2017-08-21 15:36] VITALS: BP 119/79; TEMP 98
[2017-08-22] MEDS ORDERED: Dexamethasone 4 mg/ml Vial SLOW IVP SCH (18:00)
== END 2017-08-21 18:00 | disposition home or self-care (01) | DRG 519 ==
LOC: ERS 10:13 → SJJU 21:30 → CCU 08-16 16:16 → SURG B 08-17 14:26
PROVIDERS: ADMIT Surgery; ATTEND Surgery
PROC: 00NY0ZZ Release Lumbar Spinal Cord, Open Approach (ICD-10-PCS; principal; 2017-08-16)
PROC: 00BX0ZZ Excision of Thoracic Spinal Cord, Open Approach (ICD-10-PCS; 2017-08-16)
PROC: 00NX0ZZ Release Thoracic Spinal Cord, Open Approach (ICD-10-PCS; 2017-08-16)
PROC: 00BY0ZZ Excision of Lumbar Spinal Cord, Open Approach (ICD-10-PCS; 2017-08-16)
PROC: 00UT0JZ Supplement Spinal Meninges with Synthetic Substitute, Open Approach (ICD-10-PCS; 2017-08-16)
DX: D36.10 Benign neoplasm of peripheral nerves and autonomic nervous system, unspecified (principal); G95.9 Disease of spinal cord, unspecified; G82.20 Paraplegia, unspecified; G95.29 Other cord compression; E11.9 Type 2 diabetes mellitus without complications; R33.9 Retention of urine, unspecified; E66.9 Obesity, unspecified; Z68.33 Body mass index [BMI] 33.0-33.9, adult; E87.6 Hypokalemia
CPT/HCPCS: 36415; 36416; 51702; 70553; 72149; 72156; 72157; 76001; 80048; 80053; 81003; 81015; 83036; 85025; 86850; 86900; 86901; 87086; 88304; 88307; 88325; 88331; 88341; 88342; 88360; 93005; 93010; A4216; A9579; G8978-GP-CL; G8979-GP-CK; G8987-GO-CK; G8988-GO-CI; J0131; J0690; J1100; J1170; J1815; J2001; J2250; J2270; J2370; J2405; J2550; J2704; J2765; J3010; J3370; J3490; P9045; S0028

== ENCOUNTER 2017-10-07 07:26 | Outpatient (CLI) | payer OTHER ==
[~2017-10-07 07:26] MED LIST: Gadobenate Dimeglumine 529 MG/1 ML (20ML VIAL) ONE
== END 2017-10-07 07:27 | disposition home or self-care (01) ==
LOC: BICMRI 07:26
PROVIDERS: ATTEND Surgery
DX: D36.10 Benign neoplasm of peripheral nerves and autonomic nervous system, unspecified (principal); Z98.890 Other specified postprocedural states
CPT/HCPCS: 72157; 72158; A9579